=== PATIENT | female | born 1970 | race Caucasian/White ===

== ENCOUNTER → 2016-06-10 | Outpatient (REF) | payer BC ==
[~2016-06-10] MED LIST: AMLO25TA PO; ATEN25TA PO; DELT1TAB PO; ESCI10TA2 PO; HYDR25TAB PO; HYDROXYCHLOROQUINE PO; LEFL1TAB4 PO; LISI10TA4 PO; PRED10TA PO; TRAZ100T4 PO; VICO7.5T11 PO; XANA0.5T PO; ZEST1TAB7 PO; plaquenil PO
[2016-06-10 16:49] LABS: BASO # 0.1 K/mm3 (0.0-0.2); BASO % 0.7 % (0.0-1.0); EOS # 0.3 K/mm3 (0.0-0.50); EOS % 2.8 % (0.0-3.0); LYMPH % 9.3 % (24.0-44.0); MEAN CORPUSCULAR HEMOGLOBIN 31.6 pg (27.0-33.0); MEAN CORPUSCULAR HGB CONC 33.2 g/dl (32.0-36.5); MEAN CORPUSCULAR VOLUME 95.1 fl (80.0-96.0); MONO # 0.5 K/mm3 (0.0-0.8); MONO % 5.2 % (0.0-5.0); NEUTROPHILS # 7.7 K/mm3 (1.8-7.7); NEUTROPHILS % 80.9 % (36.0-66.0); RED CELL DISTRIBUTION WIDTH 12.6 % (11.5-14.5); WHITE BLOOD COUNT 9.6 K/mm3 (4.0-10.0)
[2016-06-10 17:42] LABS: ALBUMIN 3.8 GM/DL (3.2-5.2); ALKALINE PHOSPHATASE 95 U/L (45-117); ALT/SGPT 30 U/L (12-78); AST/SGOT 19 U/L (15-37); BLOOD UREA NITROGEN 19 MG/DL (7-18); COMPLEMENT C3 133 MG/DL (90-180); CREATININE FOR GFR 0.94 MG/DL (0.55-1.02); GLOMERULAR FILTRATION RATE > 60.0 (>58)
== END ==
LOC: M LAB REF 16:26
PROVIDERS: ATTEND Physician Assistant Medical
DX: Z51.81 Encounter for therapeutic drug level monitoring (principal); Z79.899 Other long term (current) drug therapy; M32.19 Other organ or system involvement in systemic lupus erythematosus

== ENCOUNTER → 2016-08-01 | Outpatient (REF) | payer BC | LOC: M LAB REF 13:12 | PROVIDERS: ATTEND Physician Assistant Medical | DX: M32.19 Other organ or system involvement in systemic lupus erythematosus (principal) ==

== ENCOUNTER → 2016-08-13 | Outpatient (REF) | payer BC ==
[2016-08-13 17:39] LABS: MEAN CORPUSCULAR HEMOGLOBIN 32.6 pg (27.0-33.0); MEAN CORPUSCULAR HGB CONC 32.5 g/dl (32.0-36.5); MEAN CORPUSCULAR VOLUME 100.2 fl (80.0-96.0); RED CELL DISTRIBUTION WIDTH 12.6 % (11.5-14.5); WHITE BLOOD COUNT 5.9 K/mm3 (4.0-10.0)
[2016-08-13 18:01] LABS: ALBUMIN 3.8 GM/DL (3.2-5.2); ALBUMIN/GLOBULIN RATIO 1.23 (1.00-1.93); BILIRUBIN,TOTAL 0.2 MG/DL (0.2-1.0); CALCIUM LEVEL 9.2 MG/DL (8.5-10.1); CREATININE FOR GFR 1.08 MG/DL (0.55-1.02); GLOMERULAR FILTRATION RATE 57.9 (>58); POTASSIUM SERUM 4.1 MEQ/L (3.5-5.1); TOTAL PROTEIN 6.9 GM/DL (6.4-8.2)
== END ==
LOC: M SFHCCAPE 10:11 → M LABDRAWC 10:15
PROVIDERS: ATTEND Nurse Practitioner Family
DX: K21.9 Gastro-esophageal reflux disease without esophagitis (principal); I10 Essential (primary) hypertension; E78.4 Other hyperlipidemia; E55.9 Vitamin D deficiency, unspecified

== ENCOUNTER → 2016-12-23 | Outpatient (REF) | payer BC ==
[~2016-12-23] MED LIST changes: +TRAZ-136 PO; -TRAZ100T4 PO
[2016-12-23 12:36] LABS: ALBUMIN 3.8 GM/DL (3.2-5.2); CALCIUM LEVEL 8.8 MG/DL (8.5-10.1); CREATININE FOR GFR 1.06 MG/DL (0.55-1.02); GLOMERULAR FILTRATION RATE 58.9 (>58); PHOSPHORUS LEVEL 3.9 MG/DL (2.5-4.9)
== END ==
LOC: M SFHCCLAY 09:13
PROVIDERS: ATTEND Nurse Practitioner Family
DX: E78.4 Other hyperlipidemia (principal); I10 Essential (primary) hypertension; E55.9 Vitamin D deficiency, unspecified

== ENCOUNTER → 2017-03-24 | Outpatient (REF) | payer BC ==
[2017-03-24 17:44] LABS: CREATININE FOR GFR 1.06 MG/DL (0.55-1.02); GLOMERULAR FILTRATION RATE 58.9 (>58)
== END ==
LOC: M SFHCCLAY 11:18
PROVIDERS: ATTEND Nurse Practitioner Family
DX: I10 Essential (primary) hypertension (principal); E78.4 Other hyperlipidemia; E55.9 Vitamin D deficiency, unspecified

== ENCOUNTER → 2017-03-24 | Outpatient (REF) | payer BC ==
[2017-03-24 18:09] LABS: BASO # 0.1 10^3/uL (0.0-0.2); BASO % 0.7 % (0.0-1.0); EOS # 0.2 10^3/uL (0.0-0.50); EOS % 2.5 % (0.0-3.0); IMMATURE GRANULOCYTE % 0.2 % (0-0); LYMPH % 23.8 % (24.0-44.0); MEAN CORPUSCULAR HEMOGLOBIN 31.4 pg (27.0-33.0); MEAN CORPUSCULAR HGB CONC 32.8 g/dl (32.0-36.5); MEAN CORPUSCULAR VOLUME 95.7 fl (80.0-96.0); MONO # 0.6 10^3/uL (0.0-0.8); MONO % 7.5 % (0.0-5.0); NEUTROPHILS # 5.6 10^3/uL (1.8-7.7); NEUTROPHILS % 65.3 % (36.0-66.0); PLATELET COUNT, AUTOMATED 231 10^3/uL (150-450); RED CELL DISTRIBUTION WIDTH 12.2 % (11.5-14.5); WHITE BLOOD COUNT 8.5 10^3/uL (4.0-10.0)
[2017-03-24 18:36] LABS: ALBUMIN 4.2 GM/DL (3.2-5.2); ALKALINE PHOSPHATASE 78 U/L (45-117); ALT/SGPT 30 U/L (12-78); AST/SGOT 18 U/L (7-37); BLOOD UREA NITROGEN 20 MG/DL (7-18); COMPLEMENT C3 128 MG/DL (90-180); COMPLEMENT C4 20.1 MG/DL (10-40); GLOMERULAR FILTRATION RATE > 60.0 (>58)
[2017-03-24 19:25] LABS: ERYTHROCYTE SEDIMENTATION RATE 9 mm/hr (0-20)
== END ==
LOC: M LABDRAWC 17:05
PROVIDERS: ATTEND Physician Assistant Medical
DX: M32.19 Other organ or system involvement in systemic lupus erythematosus (principal); Z79.52 Long term (current) use of systemic steroids; Z79.899 Other long term (current) drug therapy

== ENCOUNTER → 2017-08-14 | Outpatient (REF) | payer BC ==
[2017-08-14 17:26] LABS: APPEARANCE, URINE CLEAR (CLEAR); BACTERIA, URINE AUTO NEGATIVE (NEGATIVE); BILIRUBIN, URINE AUTO NEGATIVE (NEGATIVE); BLOOD, URINE BLOOD NEGATIVE (NEGATIVE); COLOR, URINE YELLOW (YELLOW); GLUCOSE, URINE (UA) AUTO NEGATIVE (NEGATIVE); KETONE, URINE AUTO NEGATIVE (NEGATIVE); LEUKOCYTE ESTERASE, URINE AUTO NEGATIVE (NEGATIVE); MUCUS, URINE SMALL (NEGATIVE); NITRITE, URINE AUTO NEGATIVE (NEGATIVE); PROTEIN, URINE AUTO NEGATIVE (NEGATIVE); RBC, URINE AUTO 1 /HPF (0-3); SPECIFIC GRAVITY URINE AUTO 1.013 (1.002-1.035); SQUAMOUS EPITHELIAL CELL UR AU 0 /HPF (0-6); UROBILINOGEN, URINE AUTO 0.2 mg/dL (0.0-2.0); WBC, URINE AUTO 0 /HPF (0-3)
[2017-08-14 17:35] LABS: COMPLEMENT C4 18.7 MG/DL (10-40)
[2017-08-14 17:35] LABS: COMPLEMENT C3 112 MG/DL (90-180)
[2017-08-14 17:48] LABS: ERYTHROCYTE SEDIMENTATION RATE 13 mm/hr (0-20)
[2017-08-16 14:11] LABS: ANTI DOUBLE STRAND-DNA AB 4 IU/mL (0-9)
== END ==
LOC: M LAB REF 16:55
DX: M32.19 Other organ or system involvement in systemic lupus erythematosus (principal)
CPT/HCPCS: 86160

== ENCOUNTER → 2017-09-18 | Outpatient (REF) | payer BC ==
[2017-09-18 18:19] LABS: ALBUMIN 4.2 GM/DL (3.2-5.2); ALT/SGPT 24 U/L (12-78); AST/SGOT 14 U/L (7-37); C REACTIVE PROTEIN QUANTITATIV < 0.30 MG/DL (0.00-0.30); COMPLEMENT C3 124 MG/DL (90-180); COMPLEMENT C4 19.7 MG/DL (10-40); GLOMERULAR FILTRATION RATE 56.4 (>58)
[2017-09-18 18:45] LABS: BASO # 0.1 10^3/uL (0.0-0.2); EOS # 0.2 10^3/uL (0.0-0.50); EOS % 2.2 % (0.0-3.0); HEMATOCRIT 41.9 % (36.0-47.0); HEMOGLOBIN 13.8 g/dl (12.0-15.5); IMMATURE GRANULOCYTE % 0.2 % (0-3.0); LYMPH # 1.5 10^3/uL (1.5-4.5); LYMPH % 16.8 % (24.0-44.0); MEAN CORPUSCULAR HEMOGLOBIN 31.7 pg (27.0-33.0); MEAN CORPUSCULAR HGB CONC 32.9 g/dl (32.0-36.5); MEAN CORPUSCULAR VOLUME 96.3 fl (80.0-96.0); MONO # 0.5 10^3/uL (0.0-0.8); MONO % 5.8 % (0.0-5.0); NEUTROPHILS # 6.5 10^3/uL (1.8-7.7); PLATELET COUNT, AUTOMATED 176 10^3/uL (150-450); RED BLOOD COUNT 4.35 10^6/uL (4.00-5.40); RED CELL DISTRIBUTION WIDTH 12.3 % (11.5-14.5); WHITE BLOOD COUNT 8.8 10^3/uL (4.0-10.0)
[2017-09-18 20:36] LABS: AMORPHOUS SEDIMENT LARGE (NEGATIVE); APPEARANCE, URINE CLOUDY (CLEAR); BACTERIA, URINE AUTO 1+ (NEGATIVE); BILIRUBIN, URINE AUTO 1+ (NEGATIVE); BLOOD, URINE BLOOD NEGATIVE (NEGATIVE); COLOR, URINE YELLOW (YELLOW); GLUCOSE, URINE (UA) AUTO NEGATIVE (NEGATIVE); KETONE, URINE AUTO TRACE mg/dL (NEGATIVE); LEUKOCYTE ESTERASE, URINE AUTO TRACE (NEGATIVE); MUCUS, URINE LARGE (NEGATIVE); NITRITE, URINE AUTO NEGATIVE (NEGATIVE); PROTEIN, URINE AUTO 1+ mg/dL (NEGATIVE); RBC, URINE AUTO 5 /HPF (0-3); SPECIFIC GRAVITY URINE AUTO 1.035 (1.002-1.035); SQUAMOUS EPITHELIAL CELL UR AU 1 /HPF (0-6); WBC, URINE AUTO 8 /HPF (0-3)
[2017-09-18 20:46] LABS: ERYTHROCYTE SEDIMENTATION RATE 14 mm/hr (0-20)
[2017-09-20 14:09] LABS: ANTI DOUBLE STRAND-DNA AB 5 IU/mL (0-9)
== END ==
LOC: M LABDRAWC 16:33
DX: M32.19 Other organ or system involvement in systemic lupus erythematosus (principal); Z79.899 Other long term (current) drug therapy; Z79.52 Long term (current) use of systemic steroids
CPT/HCPCS: 84460

== ENCOUNTER → 2018-01-07 | Outpatient (REF) | payer BC ==
[2018-01-07 11:50] LABS: BASO # 0.1 10^3/uL (0.0-0.2); BASO % 0.7 % (0.0-1.0); EOS # 0.4 10^3/uL (0.0-0.50); EOS % 4.7 % (0.0-3.0); HEMATOCRIT 40.1 % (36.0-47.0); HEMOGLOBIN 12.8 g/dl (12.0-15.5); IMMATURE GRANULOCYTE % 0.3 % (0-3.0); LYMPH # 1.5 10^3/uL (1.5-4.5); LYMPH % 16.8 % (24.0-44.0); MEAN CORPUSCULAR HEMOGLOBIN 31.8 pg (27.0-33.0); MEAN CORPUSCULAR HGB CONC 31.9 g/dl (32.0-36.5); MEAN CORPUSCULAR VOLUME 99.8 fl (80.0-96.0); MONO # 0.5 10^3/uL (0.0-0.8); MONO % 5.6 % (0.0-5.0); NEUTROPHILS # 6.4 10^3/uL (1.8-7.7); NEUTROPHILS % 71.9 % (36.0-66.0); PLATELET COUNT, AUTOMATED 218 10^3/uL (150-450); RED BLOOD COUNT 4.02 10^6/uL (4.00-5.40); RED CELL DISTRIBUTION WIDTH 12.7 % (11.5-14.5); WHITE BLOOD COUNT 8.9 10^3/uL (4.0-10.0)
[2018-01-07 12:09] LABS: ERYTHROCYTE SEDIMENTATION RATE 26 mm/hr (0-20)
[2018-01-07 12:14] LABS: ALBUMIN 3.7 GM/DL (3.2-5.2); ALT/SGPT 30 U/L (12-78); AST/SGOT 26 U/L (7-37); C REACTIVE PROTEIN QUANTITATIV 0.43 MG/DL (0.00-0.30); COMPLEMENT C3 117 MG/DL (90-180); CPK CREATINE PHOSPHOKINASE 469 U/L (26-192); CREATININE FOR GFR 0.88 MG/DL (0.55-1.30); GLOMERULAR FILTRATION RATE > 60.0 (>58)
[2018-01-07 18:49] LABS: APPEARANCE, URINE HAZY (CLEAR); BACTERIA, URINE AUTO NEGATIVE (NEGATIVE); BILIRUBIN, URINE AUTO NEGATIVE (NEGATIVE); BLOOD, URINE BLOOD NEGATIVE (NEGATIVE); COLOR, URINE AMBER (YELLOW); GLUCOSE, URINE (UA) AUTO NEGATIVE (NEGATIVE); KETONE, URINE AUTO TRACE mg/dL (NEGATIVE); LEUKOCYTE ESTERASE, URINE AUTO NEGATIVE (NEGATIVE); MUCUS, URINE LARGE (NEGATIVE); NITRITE, URINE AUTO NEGATIVE (NEGATIVE); PROTEIN, URINE AUTO NEGATIVE (NEGATIVE); RBC, URINE AUTO 1 /HPF (0-3); SPECIFIC GRAVITY URINE AUTO 1.028 (1.002-1.035); SQUAMOUS EPITHELIAL CELL UR AU 0 /HPF (0-6); WBC, URINE AUTO 1 /HPF (0-3)
[2018-01-09 00:06] LABS: ALDOLASE 5.3 U/L (3.3-10.3)
[2018-01-09 00:06] LABS: ANTI DOUBLE STRAND-DNA AB 5 IU/mL (0-9)
== END ==
LOC: M LAB REF 11:14
DX: M32.19 Other organ or system involvement in systemic lupus erythematosus (principal)

== ENCOUNTER → 2018-03-23 | Outpatient (REF) | payer BC ==
[2018-03-23 11:52] LABS: HEMOGLOBIN 12.6 g/dl (12.0-15.5); MEAN CORPUSCULAR HEMOGLOBIN 32.1 pg (27.0-33.0); MEAN CORPUSCULAR HGB CONC 32.3 g/dl (32.0-36.5); MEAN CORPUSCULAR VOLUME 99.5 fl (80.0-96.0); PLATELET COUNT, AUTOMATED 204 10^3/uL (150-450); RED BLOOD COUNT 3.92 10^6/uL (4.00-5.40); RED CELL DISTRIBUTION WIDTH 12.4 % (11.5-14.5); WHITE BLOOD COUNT 7.3 10^3/uL (4.0-10.0)
[2018-03-23 12:14] LABS: ALBUMIN/GLOBULIN RATIO 1.43 (1.00-1.93); ALKALINE PHOSPHATASE 79 U/L (45-117); ALT/SGPT 40 U/L (12-78); ANION GAP 7 MEQ/L (8-16); AST/SGOT 23 U/L (7-37); BILIRUBIN,TOTAL 0.2 MG/DL (0.2-1.0); BLOOD UREA NITROGEN 12 MG/DL (7-18); CARBON DIOXIDE LEVEL 27 MEQ/L (21-32); CHLORIDE LEVEL 108 MEQ/L (98-107); CHOLESTEROL LEVEL 200 MG/DL (<200); CHOLESTEROL RISK RATIO 3.921 (<5); CREATININE FOR GFR 0.78 MG/DL (0.55-1.30); GLOMERULAR FILTRATION RATE > 60.0 (>58); GLUCOSE, FASTING 87 MG/DL (70-100); HDL CHOLESTEROL 51 MG/DL (>40); LDL CHOLESTEROL 126 MG/DL (<100); NON-HDL-C 149 MG/DL; POTASSIUM SERUM 4.4 MEQ/L (3.5-5.1); SODIUM LEVEL 142 MEQ/L (136-145); TOTAL PROTEIN 6.8 GM/DL (6.4-8.2); TRIGLYCERIDES LEVEL 114 MG/DL (<150)
[2018-03-23 12:20] LABS: TOTAL 25(OH) VITAMIN D 15.7 NG/ML (30.0-100.0)
== END ==
LOC: M SFHCCLAY 09:25
DX: K21.9 Gastro-esophageal reflux disease without esophagitis (principal); I10 Essential (primary) hypertension; E78.49 Other hyperlipidemia; E55.9 Vitamin D deficiency, unspecified
CPT/HCPCS: 80053

== ENCOUNTER → 2018-07-06 | Outpatient (REF) | payer BC ==
[~2018-07-06] MED LIST changes: -TRAZ-136 PO; +TRAZ-163 PO
[2018-07-06 12:24] LABS: CHOLESTEROL RISK RATIO 3.423 (<5)
[2018-07-06 14:47] LABS: TOTAL 25(OH) VITAMIN D 23.5 NG/ML (30.0-100.0)
== END ==
LOC: M SFHCCLAY 08:59
PROVIDERS: ATTEND Nurse Practitioner Family
DX: E78.49 Other hyperlipidemia (principal); E55.9 Vitamin D deficiency, unspecified

== ENCOUNTER → 2018-10-08 | Outpatient (REF) | payer BC ==
[~2018-10-08] MED LIST changes: +HYDR-2541 PO; +PRED-351 PO; -PRED10TA PO
== END ==
LOC: M SFHCCLAY 12:35
PROVIDERS: ATTEND Nurse Practitioner Family
DX: K13.79 Other lesions of oral mucosa (principal)

== ENCOUNTER → 2019-03-02 | Outpatient (REF) | payer BC ==
[~2019-03-02] MED LIST changes: -VICO7.5T11 PO; +VICO7.5T12 PO
[2019-03-02 18:26] LABS: HEMATOCRIT 39.6 % (36.0-47.0); MEAN CORPUSCULAR HEMOGLOBIN 32.4 pg (27.0-33.0); MEAN CORPUSCULAR HGB CONC 32.8 g/dl (32.0-36.5); MEAN CORPUSCULAR VOLUME 98.8 fl (80.0-96.0); PLATELET COUNT, AUTOMATED 193 10^3/uL (150-450); RED BLOOD COUNT 4.01 10^6/uL (4.00-5.40); WHITE BLOOD COUNT 9.5 10^3/uL (4.0-10.0)
[2019-03-02 19:01] LABS: ALBUMIN 3.9 GM/DL (3.2-5.2); ALT/SGPT 33 U/L (12-78); BILIRUBIN,TOTAL 0.3 MG/DL (0.2-1.0); BLOOD UREA NITROGEN 17 MG/DL (7-18); CALCIUM LEVEL 8.9 MG/DL (8.5-10.1); CARBON DIOXIDE LEVEL 29 MEQ/L (21-32); CHLORIDE LEVEL 108 MEQ/L (98-107); CHOLESTEROL LEVEL 182 MG/DL (<200); CHOLESTEROL RISK RATIO 2.716 (<5); CREATININE FOR GFR 0.93 MG/DL (0.55-1.30); GLOMERULAR FILTRATION RATE > 60.0 (>51); GLUCOSE, FASTING 84 MG/DL (70-100); HDL CHOLESTEROL 67 MG/DL (>40); LDL CHOLESTEROL 99 MG/DL (<100); NON-HDL-C 115 MG/DL; SODIUM LEVEL 143 MEQ/L (136-145); TOTAL PROTEIN 6.8 GM/DL (6.4-8.2); TRIGLYCERIDES LEVEL 80 MG/DL (<150)
== END ==
LOC: M SFHCCLAY 10:08
PROVIDERS: ATTEND Nurse Practitioner Family
DX: I10 Essential (primary) hypertension (principal); E78.2 Mixed hyperlipidemia; F32.9 Major depressive disorder, single episode, unspecified

== ENCOUNTER → 2019-03-23 | Outpatient (REF) | payer BC ==
[2019-03-23 18:49] LABS: BLOOD UREA NITROGEN 20 MG/DL (7-18); COMPLEMENT C3 110 MG/DL (90-180); COMPLEMENT C4 17 MG/DL (10-40); CREATININE FOR GFR 1.02 MG/DL (0.55-1.30); GLOMERULAR FILTRATION RATE > 60.0 (>51)
[2019-03-23 19:34] LABS: BASO # 0.1 10^3/uL (0.0-0.2); BASO % 0.8 % (0.0-1.0); EOS # 0.3 10^3/uL (0.0-0.5); EOS % 2.8 % (0.0-3.0); HEMOGLOBIN 13.1 g/dl (12.0-15.5); LYMPH # 1.9 10^3/uL (1.5-5.0); LYMPH % 19.2 % (24.0-44.0); MEAN CORPUSCULAR VOLUME 100.2 fl (80.0-96.0); MONO # 0.5 10^3/uL (0.0-0.8); MONO % 5.2 % (0.0-5.0); NEUTROPHILS # 7.2 10^3/uL (1.5-8.5); NEUTROPHILS % 71.7 % (36.0-66.0); PLATELET COUNT, AUTOMATED 194 10^3/uL (150-450); RED BLOOD COUNT 4.09 10^6/uL (4.00-5.40); WHITE BLOOD COUNT 10.1 10^3/uL (4.0-10.0)
== END ==
LOC: M LABDRAWC 16:20
PROVIDERS: ATTEND Physician Assistant Medical
DX: M32.19 Other organ or system involvement in systemic lupus erythematosus (principal); Z79.899 Other long term (current) drug therapy

== ENCOUNTER → 2019-05-04 | Outpatient (REF) | payer BC ==
[~2019-05-04] MED LIST changes: -TRAZ-163 PO; +TRAZ-257 PO
[2019-05-05 12:18] LABS: BASO # 0.1 10^3/uL (0.0-0.2); BASO % 1.2 % (0.0-1.0); EOS # 0.2 10^3/uL (0.0-0.5); EOS % 2.1 % (0.0-3.0); HEMATOCRIT 41.5 % (36.0-47.0); HEMOGLOBIN 13.1 g/dl (12.0-15.5); LYMPH # 2.3 10^3/uL (1.5-5.0); LYMPH % 24.1 % (24.0-44.0); MEAN CORPUSCULAR HGB CONC 31.6 g/dl (32.0-36.5); MEAN CORPUSCULAR VOLUME 101.5 fl (80.0-96.0); MONO # 0.5 10^3/uL (0.0-0.8); MONO % 5.2 % (0.0-5.0); NEUTROPHILS # 6.3 10^3/uL (1.5-8.5); NEUTROPHILS % 67.2 % (36.0-66.0); PLATELET COUNT, AUTOMATED 193 10^3/uL (150-450); RED BLOOD COUNT 4.09 10^6/uL (4.00-5.40); WHITE BLOOD COUNT 9.4 10^3/uL (4.0-10.0)
[2019-05-05 12:22] LABS: ALBUMIN 3.9 GM/DL (3.2-5.2); ALT/SGPT 27 U/L (12-78); BILIRUBIN,TOTAL 0.4 MG/DL (0.2-1.0); BLOOD UREA NITROGEN 19 MG/DL (7-18); CALCIUM LEVEL 8.6 MG/DL (8.5-10.1); CARBON DIOXIDE LEVEL 32 MEQ/L (21-32); CHLORIDE LEVEL 107 MEQ/L (98-107); CREATININE FOR GFR 1.03 MG/DL (0.55-1.30); GLOMERULAR FILTRATION RATE > 60.0 (>51); GLUCOSE, FASTING 103 MG/DL (70-100); POTASSIUM SERUM 3.8 MEQ/L (3.5-5.1); SODIUM LEVEL 143 MEQ/L (136-145); TOTAL PROTEIN 6.6 GM/DL (6.4-8.2)
== END ==
LOC: M LABDRAWC 11:29
PROVIDERS: ATTEND Nurse Practitioner
DX: M32.10 Systemic lupus erythematosus, organ or system involvement unspecified (principal)

== ENCOUNTER → 2019-09-15 | Outpatient (REF) | payer BC ==
[2019-09-15 17:05] LABS: BASO # 0.1 10^3/uL (0.0-0.2); EOS # 0.3 10^3/uL (0.0-0.5); EOS % 2.6 % (0.0-3.0); HEMATOCRIT 41.8 % (36.0-47.0); HEMOGLOBIN 13.7 g/dl (12.0-15.5); LYMPH % 18.7 % (24.0-44.0); MEAN CORPUSCULAR HEMOGLOBIN 32.1 pg (27.0-33.0); MEAN CORPUSCULAR HGB CONC 32.8 g/dl (32.0-36.5); MEAN CORPUSCULAR VOLUME 97.9 fl (80.0-96.0); MONO # 0.6 10^3/uL (0.0-0.8); MONO % 5.7 % (0.0-5.0); NEUTROPHILS # 7.6 10^3/uL (1.5-8.5); NEUTROPHILS % 71.7 % (36.0-66.0); PLATELET COUNT, AUTOMATED 206 10^3/uL (150-450); RED BLOOD COUNT 4.27 10^6/uL (4.00-5.40); WHITE BLOOD COUNT 10.6 10^3/uL (4.0-10.0)
[2019-09-15 17:11] LABS: ALBUMIN 3.8 GM/DL (3.2-5.2); ALT/SGPT 36 U/L (12-78); C REACTIVE PROTEIN QUANTITATIV < 0.30 MG/DL (0.00-0.30); COMPLEMENT C3 100 MG/DL (90-180); COMPLEMENT C4 17 MG/DL (10-40); CREATININE FOR GFR 0.94 MG/DL (0.55-1.30); GLOMERULAR FILTRATION RATE > 60.0 (>51)
[2019-09-15 17:39] LABS: ERYTHROCYTE SEDIMENTATION RATE 13 mm/hr (0-30)
[2019-09-20 13:06] LABS: ANTI DS-DNA AB Negative (Negative)
== END ==
LOC: M LABDRAWC 15:59
PROVIDERS: ATTEND Physician Assistant Medical
DX: M32.19 Other organ or system involvement in systemic lupus erythematosus (principal); Z79.52 Long term (current) use of systemic steroids; Z79.899 Other long term (current) drug therapy

== ENCOUNTER → 2019-11-10 | Outpatient (REF) | payer BC ==
[~2019-11-10] MED LIST changes: +AMLO1TAB24 PO; +AMPI500C9 PO; +DOXY-350 PO; +HIBI4LIQ EXT; +HYDR-4431 PO; +HYDR200T3 PO; +KETO10TAB PO; +LAMO25TA4 PO; +LISI40TA PO; +PRED1TABL PO; +PRED5TA PO; +VIIB40TA PO; +VITA50005 PO
[2019-12-09 13:11] LABS: BASO # 0.1 10^3/uL (0.0-0.2); BASO % 1.2 % (0.0-1.0); EOS # 0.3 10^3/uL (0.0-0.5); EOS % 2.9 % (0.0-3.0); HEMOGLOBIN 13.3 g/dl (12.0-15.5); LYMPH # 2.4 10^3/uL (1.5-5.0); LYMPH % 23.2 % (24.0-44.0); MEAN CORPUSCULAR HEMOGLOBIN 31.7 pg (27.0-33.0); MEAN CORPUSCULAR HGB CONC 31.7 g/dl (32.0-36.5); MEAN CORPUSCULAR VOLUME 100.2 fl (80.0-96.0); MONO # 0.6 10^3/uL (0.0-0.8); MONO % 5.9 % (0.0-5.0); NEUTROPHILS # 6.8 10^3/uL (1.5-8.5); NEUTROPHILS % 66.6 % (36.0-66.0); PLATELET COUNT, AUTOMATED 191 10^3/uL (150-450); RED BLOOD COUNT 4.19 10^6/uL (4.00-5.40); WHITE BLOOD COUNT 10.2 10^3/uL (4.0-10.0)
[2019-12-09 13:14] LABS: ERYTHROCYTE SEDIMENTATION RATE 7 mm/hr (0-30)
[2019-12-15 10:54] LABS: ALT/SGPT 31 U/L (12-78); C REACTIVE PROTEIN QUANTITATIV < 0.30 MG/DL (0.00-0.30); COMPLEMENT C3 102 MG/DL (90-180); COMPLEMENT C4 16 MG/DL (10-40); GLOMERULAR FILTRATION RATE > 60.0 (>51)
[2019-12-25 11:00] LABS: ANTI DS-DNA AB SEE SEPARATE REPORT
== END ==
LOC: M LABDRAWC 14:41
PROVIDERS: ATTEND Physician Assistant Medical
DX: M32.19 Other organ or system involvement in systemic lupus erythematosus (principal); Z79.52 Long term (current) use of systemic steroids; Z79.899 Other long term (current) drug therapy

== ENCOUNTER 2019-12-06 20:43 | Inpatient (IN) | payer BC ==
[~2019-12-06] VITALS: Ht 167.6 cm; Wt 70.9 kg
[~2019-12-06 20:43] MED LIST changes: -AMLO1TAB24 PO; -AMPI500C9 PO; -DOXY-350 PO; -HIBI4LIQ EXT; -HYDR-4431 PO; -HYDR200T3 PO; -KETO10TAB PO; -LAMO25TA4 PO; -LISI40TA PO; -PRED1TABL PO; -PRED5TA PO; -VIIB40TA PO; -VITA50005 PO
[2019-12-06 22:16] LABS: BASO # 0.1 10^3/uL (0.0-0.2); BASO % 0.3 % (0.0-1.0); EOS % 0.1 % (0.0-3.0); HEMATOCRIT 40.9 % (36.0-47.0); HEMOGLOBIN 13.7 g/dl (12.0-15.5); LYMPH # 1.3 10^3/uL (1.5-5.0); MEAN CORPUSCULAR HEMOGLOBIN 32.5 pg (27.0-33.0); MEAN CORPUSCULAR HGB CONC 33.5 g/dl (32.0-36.5); MEAN CORPUSCULAR VOLUME 96.9 fl (80.0-96.0); MONO # 1.3 10^3/uL (0.0-0.8); NEUTROPHILS % 88.9 % (36.0-66.0); PLATELET COUNT, AUTOMATED 212 10^3/uL (150-450); RED BLOOD COUNT 4.22 10^6/uL (4.00-5.40); WHITE BLOOD COUNT 25.8 10^3/uL (4.0-10.0)
[2019-12-06 22:27] LABS: ALBUMIN 3.8 GM/DL (3.2-5.2); ALT/SGPT 34 U/L (12-78); BILIRUBIN,DIRECT 0.2 MG/DL (0.0-0.2); BILIRUBIN,TOTAL 0.7 MG/DL (0.2-1.0); BLOOD UREA NITROGEN 16 MG/DL (7-18); CALCIUM LEVEL 8.8 MG/DL (8.5-10.1); CARBON DIOXIDE LEVEL 25 MEQ/L (21-32); CHLORIDE LEVEL 106 MEQ/L (98-107); CREATININE FOR GFR 0.82 MG/DL (0.55-1.30); GLOMERULAR FILTRATION RATE > 60.0 (>51); GLUCOSE, FASTING 103 MG/DL (70-100); POTASSIUM SERUM 3.4 MEQ/L (3.5-5.1); SODIUM LEVEL 138 MEQ/L (136-145); TOTAL PROTEIN 6.9 GM/DL (6.4-8.2)
[2019-12-06] MEDS ORDERED: MORPHINE 2 MG/ML 1ML VIAL (J2270) As Ordered ONE (22:45)
[2019-12-06] MEDS ORDERED: POTASSIUM CHLORIDE 10 MEQ SR TABLET PO ONE (23:00)
[2019-12-06] MEDS ORDERED: ceFAZolin SOD 1 GM in D5W MINI-BAG PLUS 50 ML IV ONE (23:00)
[2019-12-06] MEDS ORDERED: MORPHINE 2 MG/ML 1ML VIAL (J2270) IV ONE ×2 (23:00→23:30)
[2019-12-06 23:07] LABS: ERYTHROCYTE SEDIMENTATION RATE 39 mm/hr (0-30)
[2019-12-06] MEDS ORDERED: PERCOCET 5MG/325MG TAB PO PRN (23:45)
[2019-12-06] MEDS ORDERED: ACETAMINOPHEN TAB 650MG DOSE (2X325MG) PO ONE (23:45)
[2019-12-06] MEDS ORDERED: MORPHINE 4 MG/ML 1ML VIAL/SYRINGE (J2270) IV PRN (23:45)
[2019-12-06] MEDS ORDERED: PRED5TA PO (23:49)
[2019-12-06] MEDS ORDERED: LISI40TA PO (23:49)
[2019-12-06] MEDS ORDERED: VITA50005 PO (23:49)
[2019-12-06] MEDS ORDERED: HYDR-4431 PO (23:49)
[2019-12-06] MEDS ORDERED: LAMO25TA4 PO (23:49)
[2019-12-06] MEDS ORDERED: HIBI4LIQ EXT (23:49)
[2019-12-06] MEDS ORDERED: HYDR25TAB PO (23:49)
[2019-12-06] MEDS ORDERED: VIIB40TA PO (23:49)
[2019-12-06] MEDS ORDERED: HYDR200T3 PO (23:49)
[2019-12-06] MEDS ORDERED: AMLO1TAB24 PO (23:49)
[2019-12-07] MEDS ORDERED: KETOROLAC 30 MG/ML 1ML VIAL As Ordered ONE (00:21)
[2019-12-07] MEDS: KETOROLAC 30 MG/ML 1ML VIAL IV SCH ×5 (00:25→23:45)
[2019-12-07] MEDS ORDERED: NS 2,000 ML IV ONE (00:30)
[2019-12-07] MEDS ORDERED: VANCOMYCIN HCL 1,000 MG, VIAL MATE ADAPTER 1 EACH in D5W 250 ML IV ONE (01:15)
[2019-12-07 05:48] VITALS: BP 143/79
[2019-12-07] MEDS: ceFAZolin SOD 1 GM in D5W MINI-BAG PLUS 50 ML IV SCH ×2 (05:56→13:48)
[2019-12-07 07:46] LABS: HEMATOCRIT 38.3 % (36.0-47.0); HEMOGLOBIN 12.2 g/dl (12.0-15.5); MEAN CORPUSCULAR HEMOGLOBIN 31.6 pg (27.0-33.0); MEAN CORPUSCULAR HGB CONC 31.9 g/dl (32.0-36.5); MEAN CORPUSCULAR VOLUME 99.2 fl (80.0-96.0); PLATELET COUNT, AUTOMATED 156 10^3/uL (150-450); RED BLOOD COUNT 3.86 10^6/uL (4.00-5.40); WHITE BLOOD COUNT 24.1 10^3/uL (4.0-10.0)
[2019-12-07] MEDS ORDERED: VANCOMYCIN HCL 1,000 MG, VIAL MATE ADAPTER 1 EACH in D5W 250 ML IV SCH (08:00)
[2019-12-07] MEDS: LACTOBACILLUS ACIDOPHILUS CAP (BACID) PO SCH ×2 (08:25→18:15)
[2019-12-07] MEDS: lamoTRIgine 25 MG TAB PO SCH ×2 (08:26→22:12)
[2019-12-07] MEDS: lisinopriL 40 MG TAB PO SCH (08:26)
[2019-12-07] MEDS: amLODIPine 5 MG TAB PO SCH (08:26)
[2019-12-07 08:50] LABS: BLOOD UREA NITROGEN 14 MG/DL (7-18); CALCIUM LEVEL 8.2 MG/DL (8.5-10.1); CARBON DIOXIDE LEVEL 26 MEQ/L (21-32); CHLORIDE LEVEL 111 MEQ/L (98-107); CREATININE FOR GFR 0.76 MG/DL (0.55-1.30); GLOMERULAR FILTRATION RATE > 60.0 (>51); GLUCOSE, FASTING 92 MG/DL (70-100); POTASSIUM SERUM 3.9 MEQ/L (3.5-5.1); SODIUM LEVEL 143 MEQ/L (136-145)
--- NOTE | 2019-12-07 13:55 | IPNPDOC ---
Subjective Date Seen The patient was seen on 12/07/19. Subjective Chief Complaint/HPI redness and pain rt UE . redness improving proximally General: Denies: ROS Unobtainable, Chills, Night Sweats, Fatigue, Malaise, Normal Appetite, Other Symptoms Constitutional: Denies: Chills, Fever, Malaise, Night Sweats, Weakness, Fatigue, Weight Loss, Lethargy, Other Skin: Reports: Other (redness from Rt UE) Pulmonary: Denies: Dyspnea, Cough, Pleuritic Chest Pain, Other Symptoms Cardiovascular: Denies: Chest Pain, Palpitations, Orthopnea, Paroxysmal Noc. Dyspnea, Edema, Lt Headedness, Other Symptoms Gastrointestinal: Denies: Nausea, Vomiting, Abdominal Pain, Diarrhea, Constipation, Melena, Hematochezia, Other Symptoms Musculoskeletal: Reports: Other Symptoms (redness rt UE) Objective Physical Examination General Exam: Positive: Alert, Cooperative Eye Exam: Positive: PERRLA, Conjunctiva & lids normal ENT Exam: Positive: Atraumatic Neck Exam: Positive: Supple Heart Exam: Positive: Rate Normal, Normal S1 Abdomen Exam: Positive: Normal bowel sounds, Soft Extremity Exam: Positive: Other (redness ansd swelling of rt index finger with blister formation and redness ascending on venous pathway to UE) Skin Exam: Positive: Other skin issue (as above) Neuro Exam: Positive: Normal Gait, Strength at 5/5 X4 ext, Sensation Intact, Cranial Nerves 3-12 NL Psych Exam: Positive: Mood NL, Oriented x 3 Assessment /Plan Assessment cellulitis Rt UE Problems (1) Cellulitis of right upper extremity Status: Acute Problem Text: cellulitis starting from the tip of rt index finger with bister formation at the finger then ascending in the venous formation to UE. Pt was started on Ancef and Vanco, will Dc both and start pt on Cefatroline for broad spectrum coverage. Finger Blister was incised and drained and sent for wound C&S Elevation of RT UE awaiting wound cultures tylenol PRN Plan/VTE VTE Prophylaxis Ordered?: Yes VS, I&O, 24H, Fishbone Vital Signs/I&O Vital Signs Date Time Temp Pulse Resp B/P (MAP) Pulse Ox O2 Delivery O2 Flow Rate FiO2 12/07/19 08:26 74 143/79 12/07/19 07:35 99.2 12/07/19 05:48 18 99 Room Air I&O- Last 24 Hours up to 6 AM 12/07/19 06:00 Intake Total 0 ml Balance 0 ml Laboratory Data 24H LABS Laboratory Tests 2 12/06/19 21:30: Immature Granulocyte % (Auto) 0.7, Neutrophils (%) (Auto) 88.9H, Lymphocytes (%) (Auto) 5.0L, Monocytes (%) (Auto) 5.0, Eosinophils (%) (Auto) 0.1, Basophils (%) (Auto) 0.3, Neutrophils # (Auto) 23.0H, Lymphocytes # (Auto) 1.3L, Monocytes # (Auto) 1.3H, Eosinophils # (Auto) 0.0, Basophils # (Auto) 0.1, Nucleated Red Blood Cells % (auto) 0.0, Erythrocyte Sedimentation Rate 39H, Anion Gap 7L, Glomerular Filtration Rate > 60.0, Calcium Level 8.8, Total Bilirubin 0.7, Direct Bilirubin 0.2, Aspartate Amino Transf (AST/SGOT) 16, Alanine Aminotransferase (ALT/SGPT) 34, Alkaline Phosphatase 71, C-Reactive Protein, Quantitative 14.20H, Total Protein 6.9, Albumin 3.8, Albumin/Globulin Ratio 1.2 12/06/19 23:59: Lactic Acid Level 1.1, Methicillin-Resist S.aureus DNA PCR NOT DETECTED 12/07/19 07:20: Nucleated Red Blood Cells % (auto) 0.0, Anion Gap 6L, Glomerular Filtration Rate > 60.0, Calcium Level 8.2L CBC/BMP Laboratory Tests 12/06/19 21:30 12/07/19 07:20 Microbiology Microbiology 12/07/19 Gram Stain - Final, Resulted 12/07/19 Wound Culture, Resulted Pending 12/06/19 Blood Culture, Received Pending 12/06/19 Blood Culture, Received Pending OMID PEREZ MD Dec 07, 2019 13:55
[2019-12-07 14:00] VITALS: BP 101/55
[2019-12-07] MEDS: ACETAMINOPHEN TAB 650MG DOSE (2X325MG) PO PRN ×2 (14:35→22:12)
[2019-12-07] MEDS: CEFTAROLINE FOSAMIL 600 MG in D5W MINI-BAG PLUS 50 ML IV SCH (16:56)
[2019-12-07] MEDS: predniSONE 5 MG TAB PO SCH (18:15)
[2019-12-07] MEDS: HYDROXYCHLOROQUINE 200 MG TAB PO SCH (18:15)
[2019-12-07 22:00] VITALS: BP 116/71
[2019-12-08] MEDS: CEFTAROLINE FOSAMIL 600 MG in D5W MINI-BAG PLUS 50 ML IV SCH (04:11)
[2019-12-08 06:00] VITALS: BP 133/80
[2019-12-08 06:27] LABS: BASO # 0.1 10^3/uL (0.0-0.2); BASO % 0.4 % (0.0-1.0); EOS # 0.2 10^3/uL (0.0-0.5); EOS % 1.1 % (0.0-3.0); HEMATOCRIT 33.6 % (36.0-47.0); HEMOGLOBIN 11.2 g/dl (12.0-15.5); LYMPH # 1.2 10^3/uL (1.5-5.0); LYMPH % 8.6 % (24.0-44.0); MEAN CORPUSCULAR HEMOGLOBIN 32.7 pg (27.0-33.0); MEAN CORPUSCULAR HGB CONC 33.3 g/dl (32.0-36.5); NEUTROPHILS # 11.8 10^3/uL (1.5-8.5); NEUTROPHILS % 82.5 % (36.0-66.0); PLATELET COUNT, AUTOMATED 135 10^3/uL (150-450); RED BLOOD COUNT 3.43 10^6/uL (4.00-5.40); WHITE BLOOD COUNT 14.3 10^3/uL (4.0-10.0)
[2019-12-08 06:46] LABS: ALBUMIN 2.8 GM/DL (3.2-5.2); ALT/SGPT 32 U/L (12-78); BILIRUBIN,TOTAL 0.4 MG/DL (0.2-1.0); BLOOD UREA NITROGEN 13 MG/DL (7-18); CALCIUM LEVEL 8.6 MG/DL (8.5-10.1); CARBON DIOXIDE LEVEL 25 MEQ/L (21-32); CHLORIDE LEVEL 114 MEQ/L (98-107); CREATININE FOR GFR 0.62 MG/DL (0.55-1.30); GLOMERULAR FILTRATION RATE > 60.0 (>51); GLUCOSE, FASTING 106 MG/DL (70-100); POTASSIUM SERUM 3.6 MEQ/L (3.5-5.1); SODIUM LEVEL 142 MEQ/L (136-145); TOTAL PROTEIN 6.5 GM/DL (6.4-8.2)
[2019-12-08] MEDS: KETOROLAC 30 MG/ML 1ML VIAL IV SCH ×3 (06:52→17:53)
[2019-12-08] MEDS: lisinopriL 40 MG TAB PO SCH (08:34)
[2019-12-08] MEDS: LACTOBACILLUS ACIDOPHILUS CAP (BACID) PO SCH ×2 (08:34→17:52)
[2019-12-08] MEDS: lamoTRIgine 25 MG TAB PO SCH ×2 (08:34→21:02)
[2019-12-08] MEDS: amLODIPine 5 MG TAB PO SCH (08:34)
--- NOTE | 2019-12-08 11:29 | IPNPDOC ---
Subjective Date Seen The patient was seen on 12/08/19. Subjective Chief Complaint/HPI cellulitis is improving slowly Skin: Reports: Other (redness RT UE) Pulmonary: Denies: Dyspnea, Cough, Pleuritic Chest Pain, Other Symptoms Cardiovascular: Denies: Chest Pain, Palpitations, Orthopnea, Paroxysmal Noc. Dyspnea, Edema, Lt Headedness, Other Symptoms Gastrointestinal: Denies: Nausea, Vomiting, Abdominal Pain, Diarrhea, Constipation, Melena, Hematochezia, Other Symptoms Genitourinary: Denies: Dysuria, Frequency, Incontinence, Hematuria, Retention, Other Symptoms Musculoskeletal: Denies: Neck Pain, Back Pain, Shoulder Pain, Arm Pain, Hand Pain, Leg Pain, Foot Pain, Joint Pain, Muscle Pain, Spasms, Other Symptoms Neurological: Denies: Weakness, Numbness, Incoordination, Change in speech, Confusion, Seizures, Other Symptoms Objective Physical Examination Neck Exam: Positive: Supple Heart Exam: Positive: Rate Normal, Normal S1 Abdomen Exam: Positive: Normal bowel sounds, Soft Extremity Exam: Positive: Other (redness ansd swelling of rt index finger with blister formation and redness ascending on venous pathway to UE) Skin Exam: Positive: Other skin issue (as above) Assessment /Plan Problems (1) Cellulitis of right upper extremity Status: Acute Problem Text: cellulitis starting from the tip of rt index finger with bister formation at the finger then ascending in the venous formation to UE. Pt was started on Ancef and Vanco, will Dc both and start pt on Cefatroline for broad spectrum coverage. WBC count is 14.3 today Wound culture positive for Strep Pyogens Elevation of RT UE DC cefatroline, start Unasyn for strep coverage tylenol PRN Plan/VTE VTE Prophylaxis Ordered?: Yes VS, I&O, 24H, Fishbone Vital Signs/I&O Vital Signs Date Time Temp Pulse Resp B/P (MAP) Pulse Ox O2 Delivery O2 Flow Rate FiO2 12/08/19 08:34 60 133/80 12/08/19 06:00 98.5 18 98 Room Air I&O- Last 24 Hours up to 6 AM 12/08/19 06:00 Intake Total 1175 ml Output Total 0 ml Balance 1175 ml Laboratory Data 24H LABS Laboratory Tests 2 12/08/19 06:10: Immature Granulocyte % (Auto) 0.4, Neutrophils (%) (Auto) 82.5H, Lymphocytes (%) (Auto) 8.6L, Monocytes (%) (Auto) 7.0H, Eosinophils (%) (Auto) 1.1, Basophils (%) (Auto) 0.4, Neutrophils # (Auto) 11.8H, Lymphocytes # (Auto) 1.2L, Monocytes # (Auto) 1.0H, Eosinophils # (Auto) 0.2, Basophils # (Auto) 0.1, Nucleated Red Blood Cells % (auto) 0.0, Anion Gap 3L, Glomerular Filtration Rate > 60.0, Calcium Level 8.6, Total Bilirubin 0.4, Aspartate Amino Transf (AST/SGOT) 18, Alanine Aminotransferase (ALT/SGPT) 32, Alkaline Phosphatase 66, Total Protein 6.5, Albumin 2.8#L, Albumin/Globulin Ratio 0.8L CBC/BMP Laboratory Tests 12/08/19 06:10 Microbiology Microbiology 12/07/19 Gram Stain - Final, Resulted 12/07/19 Wound Culture - Preliminary, Resulted Streptococcus Pyogenes Grp A 12/06/19 Blood Culture - Preliminary, Resulted No growth after 24 hours . All specim... 12/06/19 Blood Culture - Preliminary, Resulted No growth after 24 hours . All specim... OMID PEREZ MD Dec 08, 2019 11:29
[2019-12-08] MEDS: AMPICILLIN SOD/SULBACTAM SOD 1.5 GM in D5W MINI-BAG PLUS 50 ML IV SCH ×2 (13:17→18:32)
[2019-12-08 14:00] VITALS: BP 145/87
[2019-12-08] MEDS: HYDROXYCHLOROQUINE 200 MG TAB PO SCH (17:52)
[2019-12-08] MEDS: predniSONE 5 MG TAB PO SCH (17:52)
[2019-12-08 22:00] VITALS: BP 126/75
[2019-12-09] MEDS: KETOROLAC 30 MG/ML 1ML VIAL IV SCH ×2 (00:40→06:05)
[2019-12-09] MEDS: AMPICILLIN SOD/SULBACTAM SOD 1.5 GM in D5W MINI-BAG PLUS 50 ML IV SCH ×2 (00:41→06:06)
[2019-12-09 06:00] VITALS: BP 132/80
[2019-12-09 06:46] LABS: BASO % 0.2 % (0.0-1.0); EOS # 0.2 10^3/uL (0.0-0.5); EOS % 1.9 % (0.0-3.0); HEMATOCRIT 34.8 % (36.0-47.0); HEMOGLOBIN 11.4 g/dl (12.0-15.5); LYMPH # 1.5 10^3/uL (1.5-5.0); LYMPH % 15.3 % (24.0-44.0); MEAN CORPUSCULAR HEMOGLOBIN 32.5 pg (27.0-33.0); MEAN CORPUSCULAR HGB CONC 32.8 g/dl (32.0-36.5); MEAN CORPUSCULAR VOLUME 99.1 fl (80.0-96.0); MONO # 0.8 10^3/uL (0.0-0.8); MONO % 8.1 % (0.0-5.0); NEUTROPHILS # 7.2 10^3/uL (1.5-8.5); NEUTROPHILS % 74.2 % (36.0-66.0); PLATELET COUNT, AUTOMATED 142 10^3/uL (150-450); RED BLOOD COUNT 3.51 10^6/uL (4.00-5.40); WHITE BLOOD COUNT 9.7 10^3/uL (4.0-10.0)
[2019-12-09 07:06] LABS: ALBUMIN 2.9 GM/DL (3.2-5.2); ALT/SGPT 45 U/L (12-78); BILIRUBIN,TOTAL 0.5 MG/DL (0.2-1.0); BLOOD UREA NITROGEN 13 MG/DL (7-18); CALCIUM LEVEL 8.3 MG/DL (8.5-10.1); CARBON DIOXIDE LEVEL 26 MEQ/L (21-32); CHLORIDE LEVEL 116 MEQ/L (98-107); CREATININE FOR GFR 0.78 MG/DL (0.55-1.30); GLOMERULAR FILTRATION RATE > 60.0 (>51); GLUCOSE, FASTING 81 MG/DL (70-100); POTASSIUM SERUM 4.1 MEQ/L (3.5-5.1); SODIUM LEVEL 149 MEQ/L (136-145); TOTAL PROTEIN 5.7 GM/DL (6.4-8.2)
[2019-12-09] MEDS ORDERED: LACTOBACILLUS ACIDOPHILUS CAP (BACID) PO SCH (09:00)
[2019-12-09 09:08] VITALS: BP 150/96
[2019-12-09] MEDS: amLODIPine 5 MG TAB PO SCH (09:08)
[2019-12-09] MEDS: lamoTRIgine 25 MG TAB PO SCH (09:08)
[2019-12-09] MEDS: lisinopriL 40 MG TAB PO SCH (09:08)
[2019-12-09] MEDS ORDERED: AMPI500C9 PO (09:52)
--- NOTE | 2019-12-09 13:40 | DS.PDOC ---
Discharge Summary General Date of Admission Dec 06, 2019 at 23:00 Date of Discharge 12/09/19 Discharge Summary PROCEDURES PERFORMED DURING STAY: [None]. ADMITTING DIAGNOSES: 1. [cellulitis RUE]. DISCHARGE DIAGNOSES: 1. [Cellulitis RUE]. COMPLICATIONS/CHIEF COMPLAINT: Cellulitis Of R Upper Extremity. HISTORY OF PRESENT ILLNESS: [49 yo female was admitted when she developed redness of RUE after removing an splinter about two weeks ago.]. HOSPITAL COURSE: [ Pt had developed cellulitis starting from the tip of rt index finger with bister formation at the finger then ascending in the venous formation to UE. Pt was started on Ancef and Vanco, will Dc both and start pt on Cefatroline for broad spectrum coverage. Later pts wound Wound culture came positive for Strep Pyogens and pt was switched to Unasyn 1.5 gm IV q 6 he Pt responded very well to current antibx and cellulitis has clinically improved. She will be Dc home PO Ampicillin 500mg q 8 Hr X10 days F/U with PCP Dr Lemus in one week]. DISCHARGE MEDICATIONS: Please see below. ALLERGIES: Please see below. PHYSICAL EXAMINATION ON DISCHARGE: VITAL SIGNS: Please see below. GENERAL: [WNL] HEENT: [IDALIA/EOMI] NECK: [Supple] CARDIOVASCULAR EXAMINATION: [Si S2 regular] RESPIRATORY EXAMINATION: [Clear to A&P] ABDOMINAL EXAMINATION: [Benign] EXTREMITIES: [decreased redness ans swelling RUE] SKIN: [as above] NEUROLOGICAL EXAMINATION: [no focal motor sensory deficit] PSYCHIATRIC EXAMINATION: [NL] LABORATORY DATA: Please see below. IMAGING: [NONE] PROGNOSIS: [good] ACTIVITY: [As tolerated]. DIET: [as tolerated] DISCHARGE PLAN: [aS ABOVE] DISPOSITION: 01 Home, Self-Care. DISCHARGE INSTRUCTIONS: 1. [ PER dc INSTRUCTIONS]. ITEMS TO FOLLOWUP ON ON OUTPATIENT: 1. [As above]. DISCHARGE CONDITION: [Stable]. TIME SPENT ON DISCHARGE: 38 minutes. Vital Signs/I&Os Vital Signs Date Time Temp Pulse Resp B/P (MAP) Pulse Ox O2 Delivery O2 Flow Rate FiO2 12/09/19 09:08 150/96 12/09/19 06:00 98.5 64 18 99 Room Air I&O- Last 24 Hours up to 6 AM 12/09/19 06:00 Intake Total 500 ml Output Total 0 ml Balance 500 ml Laboratory Data Labs 24H Laboratory Tests 2 12/09/19 05:50: Immature Granulocyte % (Auto) 0.3, Neutrophils (%) (Auto) 74.2H, Lymphocytes (%) (Auto) 15.3L, Monocytes (%) (Auto) 8.1H, Eosinophils (%) (Auto) 1.9, Basophils (%) (Auto) 0.2, Neutrophils # (Auto) 7.2, Lymphocytes # (Auto) 1.5, Monocytes # (Auto) 0.8, Eosinophils # (Auto) 0.2, Basophils # (Auto) 0.0, Nucleated Red Blood Cells % (auto) 0.0, Anion Gap 7L, Glomerular Filtration Rate > 60.0, Calcium Level 8.3L, Total Bilirubin 0.5, Aspartate Amino Transf (AST/SGOT) 23, Alanine Aminotransferase (ALT/SGPT) 45, Alkaline Phosphatase 75, Total Protein 5.7L, Albumin 2.9L, Albumin/Globulin Ratio 1.0L CBC/BMP Laboratory Tests 12/09/19 05:50 Microbiology Microbiology 12/07/19 Gram Stain - Final, Complete 12/07/19 Wound Culture - Final, Complete Streptococcus Pyogenes Grp A 12/06/19 Blood Culture - Preliminary, Resulted No Growth after 48 hours. All Specime... 12/06/19 Blood Culture - Preliminary, Resulted No Growth after 48 hours. All Specime... Discharge Medications Scheduled Amlodipine Besylate (Amlodipine Besylate) 5 Mg Tablet, 5 MG PO DAILY, (Reported) Ampicillin Trihydrate (Ampicillin Trihydrate) 500 Mg Capsule, 500 MG PO TID Chlorhexidine Gluconate (Hibiclens) 118 Ml Liquid, 1 DOSE EXT DAILY, (Reported) Ergocalciferol (Vitamin D2) (Vitamin D2) 50,000 Units Cap, 50,000 UNITS PO 1XWK, (Reported) FRIDAY Hydrochlorothiazide (Hydrochlorothiazide) 25 Mg Tablet, 25 MG PO DAILY, (Reported) Hydroxychloroquine Sulfate (Hydroxychloroquine Sulfate) 200 Mg Tablet, 400 MG PO QPM, (Reported) TAKES AT 1800 Lamotrigine (Lamotrigine) 25 Mg Tablet, 50 MG PO BID, (Reported) Lisinopril (Lisinopril) 40 Mg Tablet, 40 MG PO DAILY, (Reported) Prednisone (Prednisone) 5 Mg Tablet, 5 MG PO QPM, (Reported) TAKES AT 1800 Vilazodone HCl (Viibryd) 40 Mg Tablet, 40 MG PO DAILY, (Reported) Scheduled PRN Hydrocodone/Acetaminophen (Hydrocodone-Acetamin 7.5-300) 1 Each Tablet, 1 TAB PO QID PRN for PAIN, (Reported) Allergies Coded Allergies: mycophenolate mofetil (Unverified Adverse Reaction, Unknown, 07/14/18) OMID PEREZ MD Dec 09, 2019 13:40
--- NOTE | 2019-12-13 09:27 | HPE ---
DATE OF ADMISSION: 12/06/2019 CHIEF COMPLAINT: Right index finger swelling, redness and pain. HISTORY OF PRESENT ILLNESS: This is a 49-year-old female with history of lupus, recently given chemotherapy, on chronic prednisone 5 mg daily, was on tapering dose of 40 mg every 5 days, tapered down to 5 mg daily, was in her usual state of health until two days ago when she was picking up rocks in her yard with her son. The rocks are usually taken to be painted. Yesterday, she noted that there was a sliver. She scrubbed the area under the index finger, put Neosporin on it and a Band-Aid. Into the night, there was increased swelling. No fever or chills, but increasing pain, redness streaking up the dorsal aspect of her right forearm and into the arm, prompting her to come to the emergency room today. The patient had a hard time sleeping last night and had taken hydrocodone 7.5 mg times one without any relief. Into the afternoon today, she has had worsening pain prompting her to come to the emergency room. In the emergency room, she was found to have increasing cellulitic menard from the finger to the right arm, fever 100.8 and white count of 25,000. Hospitalist was called to admit for cellulitis. X-ray had no foreign body. PAST MEDICAL HISTORY: 1. Lupus 2. Depression 3. Anxiety 4. Fibromyalgia 5. Hypertension. 6. Vitamin D deficiency. ALLERGIES: CELLCEPT SURGICAL HISTORY: Biopsy bilaterally shoulder rash April 2015. HOME MEDICATIONS: - lisinopril 40 mg daily - prednisone 5 mg daily - lamotrigine 25 mg daily - hydrocodone/acetaminophen 7.5/300 mg one tablet daily every 4 hours - Cytoxan two weeks ago. - vitamin D 41664 units weekly - Hibiclens liquid externally - hydrochlorothiazide 25 mg daily - vilazodone 40 mg daily - Norvasc 5 mg daily - hydroxychloroquine 200 mg tablets, 400 mg q p.m. FAMILY HISTORY: Father with heart disease. Mother , diabetes, hypertension, heart disease, malignant neoplasm. Five brothers, five sisters, one son. Mother with leukemia. Sister with lung cancer, another sister with lupus. SOCIAL HISTORY: Retired speech therapist early intervention. No alcohol or tobacco use. REVIEW OF SYSTEMS: Per history of present illness. 12-point system otherwise negative. PHYSICAL EXAMINATION: T-max 100.8, pulse 78, respiratory rate 18, blood pressure 148/82, 99% on room air. General: Awake, alert, oriented to person, place and time, answers questions appropriately. No jugular venous distention (JVD), no thyromegaly. Anicteric. Extraocular muscles are intact. Pupils equally round and reactive. Moist mucous membranes. No jugular venous distention (JVD), thyromegaly or cervical lymphadenopathy. Lungs are clear to auscultation. No wheezes, rhonchi or rales. Heart: S1, S2. Sinus tachycardiac. Abdomen: Soft, nontender, nontender. Positive bowel sounds. Extremities: Right finger has a 1 cm raised area and red streaking along the dorsal aspect of the forearm, all the way up the arm and swelling and tenderness. MCP, PIP and DIP joints are swollen. Limited range of motion due to pain. LABORATORY DATA: White count 25.8, hemoglobin 13, hematocrit 40, platelet count 212, neutrophils 80.9. Sodium 138, potassium 3.4, chloride 106, bicarbonate 25, BUN 16, creatinine 0.8, glucose of 103, lactic acid 1.1, calcium 8.8, total bilirubin 0.7, direct bilirubin 0.2, AST 16, ALT 34, alkaline phosphatase 71, CRP of 14, total protein 6.9. Blood cultures two sets are pending. MRSA screen is pending and x-ray pending official report. ASSESSMENT AND PLAN: This is a 49-year-old female with history of lupus, status post Cytoxan two weeks ago on steroid taper, presented to the emergency room with two day history of finger cellulitis, now tracking up the forearm. Admitted for right upper extremity cellulitis with white count of 25,000. IMPRESSION: 1. Sepsis secondary to right finger and right arm cellulitis, currently given IV fluids, IV cephazolin. MRSA screen is pending. IV vancomycin can be discontinued once methicillin-resistant Staphylococcus aureus (MRSA) screen is negative. Blood cultures have taken. 2. Right upper extremity cellulitis, which initially started in the right index finger, currently on IV fluids, IV antibiotics with vancomycin and cephazolin. If MRSA screen is negative, may discontinue IV vancomycin. The patient is currently on IV Toradol. IV fluids given to prevent nephrotoxicity. Pharmacy consulted to dose the vancomycin. 3. Lupus. Status post Cytoxan two weeks ago, monitor the patient's renal function. May continue on lisinopril. If repeat creatinine has worsened, may hold lisinopril. 4. Hypertension. Resumed on lisinopril. 5. Depression/anxiety 6. Fibromyalgia, chronic 7. Vitamin D deficiency. Resume outpatient vitamin D supplement. 8. Deep venous thrombosis (DVT) prophylaxis with compression stockings. MTDD
--- NOTE | 2020-02-08 09:37 | REP ---
RIGHT HAND CLINICAL: Swelling and erythema. Rule out osteomyelitis. TECHNIQUE: AP, lateral, bilateral oblique views of the right hand. FINDINGS: Osseous structures, joint spaces, and surrounding soft tissues appear relatively normal and without acute fracture or dislocation. No periosteal reaction is appreciated to suggest osteomyelitis. The surrounding soft tissues demonstrate mild swelling primarily overlying the second digits without subcutaneous emphysema or foreign body. IMPRESSION: Soft tissue swelling involving the second digit. No acute fracture or dislocation. No obvious radiographic evidence for osteomyelitis MTDD
== END 2019-12-09 11:57 | disposition home or self-care (01) | DRG 383 ==
LOC: M ED 20:43 → M ED INP 23:00 → ENRESERVTM 12-07 02:55 → ENRESERVDT 12-07 02:55 → ENRESERVTM 12-07 02:59 → ENRESERVDT 12-07 02:59 → M MS5PR 12-07 05:16
PROVIDERS: ADMIT General Practice; ATTEND Internal Medicine
DX: L03.011 Cellulitis of right finger (principal); I10 Essential (primary) hypertension; F32.9 Major depressive disorder, single episode, unspecified; L03.113 Cellulitis of right upper limb; F41.9 Anxiety disorder, unspecified; M79.7 Fibromyalgia; E55.9 Vitamin D deficiency, unspecified; B95.5 Unspecified streptococcus as the cause of diseases classified elsewhere; L93.0 Discoid lupus erythematosus; Z88.8 Allergy status to other drugs, medicaments and biological substances; Z79.52 Long term (current) use of systemic steroids; Z79.891 Long term (current) use of opiate analgesic; Z79.899 Other long term (current) drug therapy

== ENCOUNTER 2019-12-13 16:24 | Inpatient (IN) | payer BC ==
[~2019-12-13] VITALS: Ht 167.6 cm; Wt 67.9 kg
[~2019-12-13 16:24] MED LIST changes: +AMLO1TAB24 PO; +AMPI500C9 PO; +HIBI4LIQ EXT; +HYDR-4431 PO; +HYDR200T3 PO; +LAMO25TA4 PO; +LISI40TA PO; +PRED5TA PO; +VIIB40TA PO; +VITA50005 PO
[2019-12-13] MEDS ORDERED: KETO10TAB PO ×2 (16:39→23:38)
[2019-12-13] MEDS ORDERED: NS 1,000 ML IV ONE (19:30)
[2019-12-13] MEDS ORDERED: AMPICILLIN SOD/SULBACTAM SOD 1.5 GM in D5W MINI-BAG PLUS 50 ML IV ONE (19:30)
[2019-12-13 21:08] LABS: HEMATOCRIT 38.9 % (36.0-47.0); HEMOGLOBIN 12.5 g/dl (12.0-15.5); MEAN CORPUSCULAR HEMOGLOBIN 31.9 pg (27.0-33.0); MEAN CORPUSCULAR HGB CONC 32.1 g/dl (32.0-36.5); MEAN CORPUSCULAR VOLUME 99.2 fl (80.0-96.0); PLATELET COUNT, AUTOMATED 305 10^3/uL (150-450); RED BLOOD COUNT 3.92 10^6/uL (4.00-5.40); WHITE BLOOD COUNT 11.3 10^3/uL (4.0-10.0)
[2019-12-13 21:20] LABS: BLOOD UREA NITROGEN 19 MG/DL (7-18); C REACTIVE PROTEIN QUANTITATIV 1.26 MG/DL (0.00-0.30); CALCIUM LEVEL 8.8 MG/DL (8.5-10.1); CARBON DIOXIDE LEVEL 30 MEQ/L (21-32); CHLORIDE LEVEL 107 MEQ/L (98-107); CREATININE FOR GFR 0.87 MG/DL (0.55-1.30); GLOMERULAR FILTRATION RATE > 60.0 (>51); GLUCOSE, FASTING 71 MG/DL (70-100); SODIUM LEVEL 140 MEQ/L (136-145)
[2019-12-13 21:25] LABS: ANISOCYTOSIS 1+; BASOPHILS 1 % (0-1); EOSINOPHILS 3 % (0-3); LYMPHOCYTES 16 % (16-44); MONOCYTES 7 % (0-5); NEUTROPHILS 73 % (28-66); PLATELET ESTIMATE NORMAL (NORMAL)
[2019-12-13 21:51] LABS: ERYTHROCYTE SEDIMENTATION RATE 42 mm/hr (0-30)
[2019-12-13] MEDS ORDERED: PRED1TABL PO (23:38)
[2019-12-13] MEDS ORDERED: AMPI500C9 PO (23:38)
--- NOTE | 2019-12-13 23:42 | HPEPDOC ---
[facility] Medical History & Physical Date of Admission Dec 13, 2019 Date of Service: Dec 13, 2019 Attending Physician: MERLENE NICHOLAS MD History and Physical TIME OF SERVICE: 1126pm CHIEF COMPLAINT: finger redness HISTORY OF PRESENT ILLNESS: This 49 yr old F was admitted on Dec 05 w sepsis 2/2 right index finger cellulitis, wound cx grew Strep Pyogens she was discharged on the with ampicillin. Today the pain, swelling and redness of her finger became worse and she developed a fever. She denied having chills. The range of motion is limited because of the swelling. REVIEW OF SYSTEMS: 12 point review of systems negative except as listed in HPI PAST MEDICAL/ SURGICAL HISTORY: Hx of facial cellulitis SLE Depression Anxiety Fibromyalgia Chronic HTN Vitamin D def SOCIAL HISTORY: -tobacco, alcohol or drugs FAMILY HISTORY: CAD, DM, HTN, CA, leukemia, SLE, lung CA ALLERGIES: Please see below. HOME MEDICATIONS: Please see below. Vital Signs Date Time Temp Pulse Resp B/P (MAP) Pulse Ox O2 Delivery O2 Flow Rate FiO2 12/13/19 16:29 98.8 77 17 137/76 (96) 97 Room Air GENERAL APPEARANCE: well nourished/ well developed /NAD HEENT: no scleral icterus / EOMI CARDIOVASCULAR: RRR/NMRG LUNGS: CTAB on RA MUSCULOSKELETAL: DEEJAY in all extremities except right index finger where ROM is limited by swelling INTEGUMENT: the dorsal part of the right index finger is davis blue in color while the medial and lateral aspects are red, the finger is warm NEUROLOGICAL: CN -12 intact / speech not dysarthric PSYCHIATRIC: A&Ox 3 /able to understand and follow all commands LABORATORY DATA: 12/13/19 20:28 IMAGING: Finger xray pending... MICROBIOLOGY: pending... ASSESSMENT: is a 49 yr old w a hx of facial cellulitis & SLE was admitted last week for management of right index finger cellulitis despite initially responding well to abx and being discharged home w ampicillin she returned w worsening, pain and redness and will be admitted for recurrent right finger cellulitis. PLAN: 1 Right finger cellulitis No SIRS criteria Plan: admit to med surg/ ceftriaxone, vancomycin / day time team to consider ID and Ortho consults / f/u finger xray 2 SLE Plan: prednisone, Plaquenil, toradol 3 HTN Plan: amlodipine, HTCZ, Lisinopril 4 Fibromyalgia Plan: [place], lamotrigine DVT Px w Lovenox Dispo: home after more than 2 midnights stay Home Medications Scheduled Amlodipine Besylate (Amlodipine Besylate) 5 Mg Tablet, 5 MG PO DAILY Ampicillin Trihydrate (Ampicillin Trihydrate) 500 Mg Capsule, 500 MG PO TID Ergocalciferol (Vitamin D2) (Vitamin D2) 50,000 Units Cap, 50,000 UNITS PO 1XWK FRIDAY Hydrochlorothiazide (Hydrochlorothiazide) 25 Mg Tablet, 25 MG PO DAILY Hydroxychloroquine Sulfate (Hydroxychloroquine Sulfate) 200 Mg Tablet, 400 MG PO QPM TAKES AT 1800 Lamotrigine (Lamotrigine) 25 Mg Tablet, 50 MG PO BID Lisinopril (Lisinopril) 40 Mg Tablet, 40 MG PO DAILY Prednisone (Prednisone) 1 Mg Tablet, 5 MG PO QPM TAKES AT 1800 Vilazodone HCl (Viibryd) 40 Mg Tablet, 40 MG PO QPM TAKES AT 1800 Scheduled PRN Chlorhexidine Gluconate (Hibiclens) 118 Ml Liquid, 1 DOSE EXT DAILY PRN for RASH Hydrocodone/Acetaminophen (Hydrocodone-Acetamin 7.5-300) 1 Each Tablet, 1 TAB PO QID PRN for PAIN Ketorolac Tromethamine (Ketorolac Tromethamine) 10 Mg Tablet, 10 MG PO Q6H PRN for PAIN Allergies Coded Allergies: mycophenolate mofetil (Unverified Adverse Reaction, Unknown, 07/14/18) A-FIB/CHADSVASC A-FIB History Current/History of A-Fib/PAF?: No Current PO Anticoag Therapy: No MERLENE NICHOLAS MD Dec 13, 2019 23:42
[2019-12-13] MEDS ORDERED: VANCOMYCIN HCL 750 MG, VIAL MATE ADAPTER 1 EACH in D5W 250 ML IV SCH (23:45)
[2019-12-13] MEDS ORDERED: MOM 30ML SUSPENSION UDC PO PRN (23:45)
[2019-12-13] MEDS ORDERED: ACETAMINOPHEN TAB 650MG DOSE (2X325MG) PO PRN (23:45)
[2019-12-14 00:47] LABS: INR 0.98; PROTHROMBIN TIME 13.2 SECONDS (11.8-14.0)
[2019-12-14 02:00] VITALS: BP 120/76
[2019-12-14] MEDS ORDERED: ANEXSIA, NORCO 7.5MG/325MG TABLET(HYDROCODONE/APAP) PO PRN (02:00)
[2019-12-14] MEDS ORDERED: KETOROLAC TROMETHAMINE 10 MG TAB PO PRN (02:00)
[2019-12-14] MEDS: lamoTRIgine 25 MG TAB PO SCH ×3 (02:15→20:34)
[2019-12-14] MEDS ORDERED: VANCOMYCIN HCL 750 MG, VIAL MATE ADAPTER 1 EACH in D5W 250 ML IV ONE ×2 (02:30→03:30)
[2019-12-14 06:00] VITALS: BP 130/79
[2019-12-14 06:09] LABS: HEMATOCRIT 37.5 % (36.0-47.0); MEAN CORPUSCULAR HEMOGLOBIN 31.7 pg (27.0-33.0); MEAN CORPUSCULAR VOLUME 98.9 fl (80.0-96.0); PLATELET COUNT, AUTOMATED 269 10^3/uL (150-450); RED BLOOD COUNT 3.79 10^6/uL (4.00-5.40); WHITE BLOOD COUNT 10.7 10^3/uL (4.0-10.0)
[2019-12-14 06:32] LABS: BLOOD UREA NITROGEN 15 MG/DL (7-18); CARBON DIOXIDE LEVEL 28 MEQ/L (21-32); CHLORIDE LEVEL 110 MEQ/L (98-107); CREATININE FOR GFR 0.83 MG/DL (0.55-1.30); GLOMERULAR FILTRATION RATE > 60.0 (>51); GLUCOSE, FASTING 111 MG/DL (70-100); MAGNESIUM LEVEL 2.3 MG/DL (1.8-2.4); POTASSIUM SERUM 3.9 MEQ/L (3.5-5.1); SODIUM LEVEL 143 MEQ/L (136-145)
[2019-12-14] MEDS: lisinopriL 40 MG TAB PO SCH (08:39)
[2019-12-14] MEDS: hydroCHLOROthiazide 25 MG TAB PO SCH (08:39)
[2019-12-14] MEDS: amLODIPine 5 MG TAB PO SCH (08:40)
[2019-12-14] MEDS: cefTRIAXone SOD 2 GM in D5W MINI-BAG PLUS 50 ML IV SCH (08:40)
[2019-12-14] MEDS ORDERED: cefTRIAXone SOD 2 GM VIAL (J0696 PER 250MG) IM SCH (09:00)
--- NOTE | 2019-12-14 10:35 | IPNPDOC ---
Subjective Date Seen The patient was seen on 12/14/19. Subjective Chief Complaint/HPI decreased redness and swelling rt index finger General: Denies: ROS Unobtainable, Chills, Night Sweats, Fatigue, Malaise, No rmal Appetite, Other Symptoms Pulmonary: Denies: Dyspnea, Cough, Pleuritic Chest Pain, Other Symptoms Cardiovascular: Denies: Chest Pain, Palpitations, Orthopnea, Paroxysmal Noc. Dyspnea, Edema, Lt Headedness, Other Symptoms Gastrointestinal: Denies: Nausea, Vomiting, Abdominal Pain, Diarrhea, Constipation, Melena, Hematochezia, Other Symptoms Genitourinary: Denies: Dysuria, Frequency, Incontinence, Hematuria, Retention, Other Symptoms Musculoskeletal: Reports: Other Symptoms (rt index finger swelling and apin) Objective Physical Examination General Exam: Positive: Alert, Cooperative Eye Exam: Positive: PERRLA ENT Exam: Positive: Atraumatic Neck Exam: Positive: Supple Chest Exam: Positive: Normal air movement Heart Exam: Positive: Rate Normal, Normal S1, Normal S2 Abdomen Exam: Positive: Normal bowel sounds, Soft, Tenderness Extremity Exam: Positive: Other (residual swelling and discoloration of rt index finger noted, no redness beyond the finger) Assessment /Plan Problems (1) Cellulitis of right upper extremity Status: Acute Problem Text: Residual swelling and discoloration rt index finger No cellulitis except the affected finger Started on Zosyn and vanco Ortho consult called for further suggestions Wound C&S on previous admission: Strep Pyoderm Continue home meds Plan/VTE VTE Prophylaxis Ordered?: Yes VS, I&O, 24H, Fishbone Vital Signs/I&O Vital Signs Date Time Temp Pulse Resp B/P (MAP) Pulse Ox O2 Delivery O2 Flow Rate FiO2 12/14/19 08:40 65 118/78 12/14/19 06:00 98.1 16 99 Room Air I&O- Last 24 Hours up to 6 AM 12/14/19 06:00 Intake Total 1710 ml Output Total 800 ml Balance 910 ml Laboratory Data 24H LABS Laboratory Tests 2 12/13/19 20:28: Neutrophils (%) (Auto) , Nucleated Red Blood Cells % (auto) 0.0, Neutrophils 73H, Lymphocytes (Manual) 16, Monocytes (Manual) 7H, Eosinophils (Manual) 3, Basophils (Manual) 1, Anisocytosis 1+, Platelet Estimate NORMAL, Erythrocyte Sedimentation Rate 42H, Prothrombin Time 13.2, Prothromb Time International Ratio 0.98, Activated Partial Thromboplast Time 30.0, Anion Gap 3L, Glomerular Filtration Rate > 60.0, Lactic Acid Level 0.6, Calcium Level 8.8, C-Reactive Protein, Quantitative 1.26H 12/14/19 05:19: Nucleated Red Blood Cells % (auto) 0.0, Anion Gap 5L, Glomerular Filtration Rate > 60.0, Calcium Level 8.0L, Magnesium Level 2.3 CBC/BMP Laboratory Tests 12/13/19 20:28 12/14/19 05:19 Microbiology Microbiology 12/13/19 Blood Culture, Received Pending 12/13/19 Blood Culture, Received Pending OMID PEREZ MD Dec 14, 2019 10:35
[2019-12-14 14:00] VITALS: BP 114/72
[2019-12-14] MEDS: VANCOMYCIN HCL 1,000 MG, VIAL MATE ADAPTER 1 EACH in D5W 250 ML IV SCH (16:46)
[2019-12-14] MEDS: predniSONE 5 MG TAB PO SCH (18:51)
[2019-12-14] MEDS: HYDROXYCHLOROQUINE 200 MG TAB PO SCH (18:51)
[2019-12-14] MEDS ORDERED: ENTER DRUG NAME HERE (PATIENT'S OWN MED) PO SCH (21:00)
[2019-12-14 22:00] VITALS: BP 122/77
[2019-12-15] MEDS: VANCOMYCIN HCL 1,000 MG, VIAL MATE ADAPTER 1 EACH in D5W 250 ML IV SCH (03:35)
[2019-12-15 05:42] LABS: HEMATOCRIT 38.6 % (36.0-47.0); HEMOGLOBIN 12.6 g/dl (12.0-15.5); MEAN CORPUSCULAR HEMOGLOBIN 31.9 pg (27.0-33.0); MEAN CORPUSCULAR HGB CONC 32.6 g/dl (32.0-36.5); MEAN CORPUSCULAR VOLUME 97.7 fl (80.0-96.0); PLATELET COUNT, AUTOMATED 278 10^3/uL (150-450); RED BLOOD COUNT 3.95 10^6/uL (4.00-5.40); WHITE BLOOD COUNT 6.7 10^3/uL (4.0-10.0)
[2019-12-15 06:00] VITALS: BP 116/71
[2019-12-15 06:09] LABS: ALBUMIN 3.2 GM/DL (3.2-5.2); ALT/SGPT 25 U/L (12-78); BILIRUBIN,TOTAL 0.3 MG/DL (0.2-1.0); BLOOD UREA NITROGEN 15 MG/DL (7-18); CALCIUM LEVEL 8.8 MG/DL (8.5-10.1); CARBON DIOXIDE LEVEL 27 MEQ/L (21-32); CHLORIDE LEVEL 110 MEQ/L (98-107); CREATININE FOR GFR 0.81 MG/DL (0.55-1.30); GLOMERULAR FILTRATION RATE > 60.0 (>51); GLUCOSE, FASTING 115 MG/DL (70-100); POTASSIUM SERUM 3.9 MEQ/L (3.5-5.1); SODIUM LEVEL 144 MEQ/L (136-145); TOTAL PROTEIN 6.2 GM/DL (6.4-8.2)
[2019-12-15 06:26] LABS: BASOPHILS 3 % (0-1); LYMPHOCYTES 22 % (16-44); MONOCYTES 7 % (0-5); NEUTROPHILS 68 % (28-66); PLATELET ESTIMATE NORMAL (NORMAL)
--- NOTE | 2019-12-15 07:56 | CR ---
DATE OF CONSULTATION: 12/14/2019 REASON FOR CONSULTATION: Right index finger cellulitis. HISTORY OF PRESENT ILLNESS: This is a 49-year-old woman who was admitted on December 05 with sepsis and right index finger cellulitis. The wound culture grew Strep pyogenes, and she was discharged three days later on Ampicillin. She returned yesterday and was readmitted because of increased redness and swelling of the finger. She had apparently developed a fever, but has been afebrile in the hospital. No chills. She does notice some stiffness. Last week when this started, nine days ago, she had been doing some gardening and she wanted us to see if she could have gotten a small sliver from a [employer] plant or something similar in her finger. REVIEW OF SYSTEMS: Otherwise unremarkable except for her history and physical. PAST MEDICAL HISTORY: Notable for Vitamin D deficiency, chronic hypertension, fibromyalgia, anxiety, depression, lupus and facial cellulitis. FAMILY HISTORY: Coronary artery disease, diabetes, hypertension, cancer, leukemia, lupus. SOCIAL HISTORY: She denies tobacco, alcohol, or drug use. ALLERGIES: Include Mycophenolate Mofetil. HOME MEDICATIONS: Include: Amlodipine, Ampicillin, Vitamin D2, hydrochlorothiazide, Hydroxychloroquine sulfate, Lamotrigine, Lisinopril, prednisone, and Viibryd. She relates that today is finger is dramatically better than it was yesterday, just having been on antibiotics here. She does relate some stiffness in her finger. PHYSICAL EXAMINATION: Otherwise healthy woman in no acute distress. She is currently afebrile. She does have some redness of the finger mostly near the distal aspect of the index finger with some decreased sensation distally, likely due to the chronic swelling. She has what appears to be a blister over the dorsal aspect of the finger, but there is no clear fluid collection and no obvious foreign body. She has good range of motion of her MP joint. Her PIP joint has about 30 degrees of flexion and the DIP joint about 10 degrees of flexion. There is no red streaking. There is only mild swelling of the digit. There is no tenderness along the flexor side, along the palm and no evidence of any infected flexor tenosynovitis. Absolutely no red streaking of the arm, which she had last week. LABORATORY DATA: Include a current white count of 10.7 whereas it was 24 at one point. Sed rate is 42 currently and CRP was 14.2 on the 24th and is currently 1.26. So all of these are trending in the right direction. IMAGING STUDIES: X-ray was reviewed; there was no evidence of a foreign body. IMPRESSION: Right index finger cellulitis. She may have had a small laceration that started this or there could be a tiny foreign body from the [employer] plant, but clinically improving significantly. RECOMMENDATIONS: My recommendation is to continue with the I.V. antibiotics, and that is being done. I would encourage warm water soaks for 30 minutes four times a day and gentle range of motion of the finger. Will follow if she stays in the hospital. Would recommend follow-up in the orthopedic office in 5 to 7 days for a recheck. She may eventually need occupational therapy, but I would not encourage aggressive motion at this point just due to concern of compromising the skin. All questions were answered. Patient was appreciated for the visit. Thank you for the consult. CHRIS
[2019-12-15] MEDS: amLODIPine 5 MG TAB PO SCH (09:38)
[2019-12-15] MEDS: hydroCHLOROthiazide 25 MG TAB PO SCH (09:38)
[2019-12-15] MEDS: lamoTRIgine 25 MG TAB PO SCH ×2 (09:38→20:55)
[2019-12-15] MEDS: lisinopriL 40 MG TAB PO SCH (09:38)
[2019-12-15] MEDS: cefTRIAXone SOD 2 GM in D5W MINI-BAG PLUS 50 ML IV SCH (09:41)
--- NOTE | 2019-12-15 11:33 | IPNPDOC ---
Subjective Date Seen The patient was seen on 12/15/19. Subjective Chief Complaint/HPI pt feels better, decreased swelling of rt index finger General: Denies: ROS Unobtainable, Chills, Night Sweats, Fatigue, Malaise, Normal Appetite, Other Symptoms Pulmonary: Denies: Dyspnea, Cough, Pleuritic Chest Pain, Other Symptoms Cardiovascular: Denies: Chest Pain, Palpitations, Orthopnea, Paroxysmal Noc. Dyspnea, Edema, Lt Headedness, Other Symptoms Gastrointestinal: Denies: Nausea, Vomiting, Abdominal Pain, Diarrhea, Constipation, Melena, Hematochezia, Other Symptoms Musculoskeletal: Reports: Other Symptoms (swelling rt index finger) Neurological: Denies: Weakness, Numbness, Incoordination, Change in speech, Confusion, Seizures, Other Symptoms Objective Physical Examination Chest Exam: Positive: Normal air movement Heart Exam: Positive: Rate Normal, Normal S1, Normal S2 Abdomen Exam: Positive: Normal bowel sounds, Soft, Tenderness Extremity Exam: Positive: Other (decreased swelling rt index finger with old skin changes) Assessment /Plan Problems (1) Cellulitis of right upper extremity Status: Acute Problem Text: Residual swelling and discoloration rt index finger No cellulitis except the affected finger improving swelling and skin changes at right index finger Ortho consult appreciated Warm soaks as per orders DC Vanco but continue Zosyn probable DC im am on PO levaquin or Avelox Wound C&S on previous admission: Strep Pyoderm sensative to multiple anti Bx including Floroquinolones Continue home meds Plan/VTE VTE Prophylaxis Ordered?: Yes VS, I&O, 24H, Fishbone Vital Signs/I&O Vital Signs Date Time Temp Pulse Resp B/P (MAP) Pulse Ox O2 Delivery O2 Flow Rate FiO2 12/15/19 09:38 64 132/74 12/15/19 06:00 98.0 18 96 Room Air I&O- Last 24 Hours up to 6 AM 12/15/19 05:59 Intake Total 1575 ml Output Total 3100 ml Balance -1525 ml Laboratory Data 24H LABS Laboratory Tests 2 12/15/19 05:17: Neutrophils (%) (Auto) , Nucleated Red Blood Cells % (auto) 0.0, Neutrophils 68H, Lymphocytes (Manual) 22, Monocytes (Manual) 7H, Basophils (Manual) 3H, Red Blood Cell Morphology NORMAL, Platelet Estimate NORMAL, Anion Gap 7L, Glomerular Filtration Rate > 60.0, Calcium Level 8.8, Total Bilirubin 0.3, Aspartate Amino Transf (AST/SGOT) 12, Alanine Aminotransferase (ALT/SGPT) 25, Alkaline Phosphatase 62, Total Protein 6.2L, Albumin 3.2, Albumin/Globulin Ratio 1.1L CBC/BMP Laboratory Tests 12/15/19 05:17 Microbiology Microbiology 12/13/19 Blood Culture - Preliminary, Resulted No growth after 24 hours . All specim... 12/13/19 Blood Culture - Preliminary, Resulted No growth after 24 hours . All specim... OMID PEREZ MD Dec 15, 2019 11:33
[2019-12-15 14:00] VITALS: BP 126/70
[2019-12-15] MEDS: predniSONE 5 MG TAB PO SCH (17:59)
[2019-12-15] MEDS: HYDROXYCHLOROQUINE 200 MG TAB PO SCH (17:59)
[2019-12-15 22:00] VITALS: BP 103/63
[2019-12-16 06:00] VITALS: BP 120/62
[2019-12-16 06:29] LABS: HEMOGLOBIN 12.9 g/dl (12.0-15.5); MEAN CORPUSCULAR HEMOGLOBIN 31.8 pg (27.0-33.0); MEAN CORPUSCULAR HGB CONC 32.3 g/dl (32.0-36.5); MEAN CORPUSCULAR VOLUME 98.5 fl (80.0-96.0); PLATELET COUNT, AUTOMATED 316 10^3/uL (150-450); RED BLOOD COUNT 4.06 10^6/uL (4.00-5.40); WHITE BLOOD COUNT 7.1 10^3/uL (4.0-10.0)
[2019-12-16 07:13] LABS: BASOPHILS 2 % (0-1); EOSINOPHILS 1 % (0-3); LYMPHOCYTES 24 % (16-44); MONOCYTES 2 % (0-5); NEUTROPHILS 71 % (28-66); PLATELET ESTIMATE NORMAL (NORMAL)
[2019-12-16] MEDS: lamoTRIgine 25 MG TAB PO SCH ×2 (08:18→20:11)
[2019-12-16] MEDS: hydroCHLOROthiazide 25 MG TAB PO SCH (08:18)
[2019-12-16] MEDS: lisinopriL 40 MG TAB PO SCH (08:18)
[2019-12-16] MEDS: cefTRIAXone SOD 2 GM in D5W MINI-BAG PLUS 50 ML IV SCH (08:19)
[2019-12-16] MEDS: amLODIPine 5 MG TAB PO SCH (08:19)
--- NOTE | 2019-12-16 11:38 | IPNPDOC ---
Subjective Date Seen The patient was seen on 12/16/19. Subjective Chief Complaint/HPI feeling better, no new complaints General: Denies: ROS Unobtainable, Chills, Night Sweats, Fatigue, Malaise, Normal Appetite, Other Symptoms Constitutional: Denies: Chills, Fever, Malaise, Night Sweats, Weakness, Fatigue, Weight Loss, Lethargy, Other Pulmonary: Denies: Dyspnea, Cough, Pleuritic Chest Pain, Other Symptoms Cardiovascular: Denies: Chest Pain, Palpitations, Orthopnea, Paroxysmal Noc. Dyspnea, Edema, Lt Headedness, Other Symptoms Gastrointestinal: Denies: Nausea, Vomiting, Abdominal Pain, Diarrhea, Constipation, Melena, Hematochezia, Other Symptoms Musculoskeletal: Denies: Neck Pain, Back Pain, Shoulder Pain, Arm Pain, Hand Pain, Leg Pain, Foot Pain, Joint Pain, Muscle Pain, Spasms, Other Symptoms Neurological: Denies: Weakness, Numbness, Incoordination, Change in speech, Confusion, Seizures, Other Symptoms Objective Physical Examination Chest Exam: Positive: Normal air movement Heart Exam: Positive: Rate Normal, Normal S1, Normal S2 Abdomen Exam: Positive: Normal bowel sounds, Soft, Tenderness Extremity Exam: Positive: Other (decreased swelling rt index finger with old skin changes) Assessment /Plan Problems (1) Cellulitis of right upper extremity Status: Acute Problem Text: Residual swelling and discoloration rt index finger No cellulitis except the affected finger improving swelling and skin changes at right index finger Ortho consult appreciated Warm soaks as per orders Continue Rocephin as per orders Wound C&S on previous admission: Strep Pyoderm sensative to multiple anti Bx including Floroquinolones Probably needs few days of IV anti Bx as per Ortho recs: PT/OT has seen pt. with gentle flexion /extention excercises of rt index finger Continue home meds Plan/VTE VTE Prophylaxis Ordered?: Yes VS, I&O, 24H, Fishbone Vital Signs/I&O Vital Signs Date Time Temp Pulse Resp B/P (MAP) Pulse Ox O2 Delivery O2 Flow Rate FiO2 12/16/19 08:19 66 132/74 12/16/19 06:00 97.4 18 96 Room Air I&O- Last 24 Hours up to 6 AM 12/16/19 06:00 Intake Total 2850 ml Output Total 2750 ml Balance 100 ml Laboratory Data 24H LABS Laboratory Tests 2 12/16/19 05:27: Neutrophils (%) (Auto) , Nucleated Red Blood Cells % (auto) 0.0, Neutrophils 71H, Lymphocytes (Manual) 24, Monocytes (Manual) 2, Eosinophils (Manual) 1, Basophils (Manual) 2H, Red Blood Cell Morphology NORMAL, Platelet Estimate NORMAL CBC/BMP Laboratory Tests 12/16/19 05:27 Microbiology Microbiology 12/13/19 Blood Culture - Preliminary, Resulted No Growth after 48 hours. All Specime... 12/13/19 Blood Culture - Preliminary, Resulted No Growth after 48 hours. All Specime... OMID PEREZ MD Dec 16, 2019 11:38
[2019-12-16 14:00] VITALS: BP 128/68
[2019-12-16] MEDS: predniSONE 5 MG TAB PO SCH (16:57)
[2019-12-16] MEDS: HYDROXYCHLOROQUINE 200 MG TAB PO SCH (16:57)
[2019-12-16 22:00] VITALS: BP 133/83
[2019-12-17 06:00] VITALS: BP 116/68
[2019-12-17 07:14] LABS: HEMATOCRIT 42.1 % (36.0-47.0); HEMOGLOBIN 13.6 g/dl (12.0-15.5); MEAN CORPUSCULAR HEMOGLOBIN 31.6 pg (27.0-33.0); MEAN CORPUSCULAR HGB CONC 32.3 g/dl (32.0-36.5); MEAN CORPUSCULAR VOLUME 97.7 fl (80.0-96.0); PLATELET COUNT, AUTOMATED 310 10^3/uL (150-450); RED BLOOD COUNT 4.31 10^6/uL (4.00-5.40); WHITE BLOOD COUNT 7.4 10^3/uL (4.0-10.0)
[2019-12-17 07:43] LABS: ALBUMIN 3.2 GM/DL (3.2-5.2); ALT/SGPT 27 U/L (12-78); BILIRUBIN,TOTAL 0.4 MG/DL (0.2-1.0); BLOOD UREA NITROGEN 21 MG/DL (7-18); CALCIUM LEVEL 8.6 MG/DL (8.5-10.1); CARBON DIOXIDE LEVEL 27 MEQ/L (21-32); CHLORIDE LEVEL 108 MEQ/L (98-107); CREATININE FOR GFR 0.98 MG/DL (0.55-1.30); GLOMERULAR FILTRATION RATE > 60.0 (>51); GLUCOSE, FASTING 77 MG/DL (70-100); POTASSIUM SERUM 3.5 MEQ/L (3.5-5.1); SODIUM LEVEL 143 MEQ/L (136-145); TOTAL PROTEIN 6.8 GM/DL (6.4-8.2)
[2019-12-17 08:07] LABS: ATYPICAL LYMPH 7 % (0-5); EOSINOPHILS 5 % (0-3); LYMPHOCYTES 26 % (16-44); MONOCYTES 11 % (0-5); NEUTROPHILS 51 % (28-66)
[2019-12-17 08:12] LABS: ANISOCYTOSIS 1+; PLATELET ESTIMATE NORMAL (NORMAL)
[2019-12-17] MEDS: cefTRIAXone SOD 2 GM in D5W MINI-BAG PLUS 50 ML IV SCH (08:13)
[2019-12-17 08:14] VITALS: BP 132/77
[2019-12-17] MEDS: amLODIPine 5 MG TAB PO SCH (08:14)
[2019-12-17] MEDS: hydroCHLOROthiazide 25 MG TAB PO SCH (08:14)
[2019-12-17] MEDS: lisinopriL 40 MG TAB PO SCH (08:14)
[2019-12-17] MEDS: lamoTRIgine 25 MG TAB PO SCH (08:15)
[2019-12-17] MEDS ORDERED: DOXY-350 PO (12:41)
--- NOTE | 2019-12-17 21:33 | DS.PDOC ---
Discharge Summary General Date of Admission Dec 13, 2019 at 23:38 Date of Discharge 12/17/19 Discharge Summary PROCEDURES PERFORMED DURING STAY: [None]. ADMITTING DIAGNOSES: Cellulitis of right upper extremity DISCHARGE DIAGNOSES: Cellulitis of right upper extremity COMPLICATIONS/CHIEF COMPLAINT: Celulitus Of Right Index Finger. HISTORY OF PRESENT ILLNESS: is a 49 yr old w a hx of facial cellulitis & SLE was admitted last week for management of right index finger cellulitis despite initially responding well to abx and being discharged home w ampicillin she returned w worsening, pain and redness and will be admitted for recurrent right finger cellulitis. HOSPITAL COURSE: During hospital stay pt received treatment with Ceftriaxone with positive effect DISCHARGE MEDICATIONS: Please see below. ALLERGIES: Please see below. PHYSICAL EXAMINATION ON DISCHARGE: GENERAL APPEARANCE: well nourished/ well developed /NAD HEENT: no scleral icterus / EOMI CARDIOVASCULAR: RRR/NMRG LUNGS: CTAB on RA MUSCULOSKELETAL: DEEJAY in all extremities except right index finger where ROM is limited by swelling INTEGUMENT: the dorsal part of the right index finger is pink, in the stage of healing NEUROLOGICAL: CN -12 intact / speech not dysarthric PSYCHIATRIC: A&Ox 3 /able to understand and follow all commands LABORATORY DATA: Please see below. PROGNOSIS: fair ACTIVITY: [As tolerated]. DIET: regular DISPOSITION: 01 Home, Self-Care. DISCHARGE INSTRUCTIONS: c/w abs ITEMS TO FOLLOWUP ON ON OUTPATIENT: f/u with ortho team in 1 week DISCHARGE CONDITION: [Stable]. TIME SPENT ON DISCHARGE: Greater than 20 minutes. Vital Signs/I&Os Vital Signs Date Time Temp Pulse Resp B/P (MAP) Pulse Ox O2 Delivery O2 Flow Rate FiO2 12/17/19 08:14 66 132/77 12/17/19 06:00 97.2 19 100 Room Air I&O- Last 24 Hours up to 6 AM 12/17/19 06:00 Intake Total 1460 ml Output Total 400 ml Balance 1060 ml Laboratory Data Labs 24H Laboratory Tests 2 12/17/19 07:01: Neutrophils (%) (Auto) , Nucleated Red Blood Cells % (auto) 0.0, Neutrophils 51, Lymphocytes (Manual) 26, Monocytes (Manual) 11H, Eosinophils (Manual) 5H, Atypical Lymphocytes 7H, Anisocytosis 1+, Macrocytosis 1+, Platelet Estimate NORMAL, Anion Gap 8, Glomerular Filtration Rate > 60.0, Calcium Level 8.6, Total Bilirubin 0.4, Aspartate Amino Transf (AST/SGOT) 14, Alanine Aminotransferase (ALT/SGPT) 27, Alkaline Phosphatase 62, Total Protein 6.8, Albumin 3.2, Albumin/Globulin Ratio 0.9L CBC/BMP Laboratory Tests 12/17/19 07:01 Microbiology Microbiology 12/13/19 Blood Culture - Preliminary, Resulted No Growth after 72 hours. All specime... 12/13/19 Blood Culture - Preliminary, Resulted No Growth after 72 hours. All specime... Discharge Medications Scheduled Amlodipine Besylate (Amlodipine Besylate) 5 Mg Tablet, 5 MG PO DAILY, (Reported) Doxycycline Monohydrate (Doxycycline) 100 Mg Capsule, 1 CAP PO BID Ergocalciferol (Vitamin D2) (Vitamin D2) 50,000 Units Cap, 50,000 UNITS PO 1XWK, (Reported) FRIDAY Hydrochlorothiazide (Hydrochlorothiazide) 25 Mg Tablet, 25 MG PO DAILY, (Reported) Hydroxychloroquine Sulfate (Hydroxychloroquine Sulfate) 200 Mg Tablet, 400 MG PO QPM, (Reported) TAKES AT 1800 Lamotrigine (Lamotrigine) 25 Mg Tablet, 50 MG PO BID, (Reported) Lisinopril (Lisinopril) 40 Mg Tablet, 40 MG PO DAILY, (Reported) Prednisone (Prednisone) 1 Mg Tablet, 5 MG PO QPM, (Reported) TAKES AT 1800 Vilazodone HCl (Viibryd) 40 Mg Tablet, 40 MG PO QPM, (Reported) TAKES AT 1800 Scheduled PRN Chlorhexidine Gluconate (Hibiclens) 118 Ml Liquid, 1 DOSE EXT DAILY PRN for RASH, (Reported) Hydrocodone/Acetaminophen (Hydrocodone-Acetamin 7.5-300) 1 Each Tablet, 1 TAB PO QID PRN for PAIN, (Reported) Ketorolac Tromethamine (Ketorolac Tromethamine) 10 Mg Tablet, 10 MG PO Q6H PRN for PAIN, (Reported) Allergies Coded Allergies: mycophenolate mofetil (Unverified Adverse Reaction, Unknown, 07/14/18) JOSEPH LOPEZ DO Dec 17, 2019 21:33
--- NOTE | 2020-01-10 16:16 | REP ---
FINGER RADIOGRAPH SERIES CLINICAL: Cellulitis. TECHNIQUE: AP, lateral, and bilateral oblique of the right second digit. FINDINGS: Soft tissue swelling primarily overlying the mid and distal phalanges. No obvious acute fracture or dislocation. No periosteal reaction. No subcutaneous emphysema or foreign body. IMPRESSION: Soft tissue swelling consistent with the given history of cellulitis. No obvious bony involvement, subcutaneous emphysema, or foreign body. [facility]
== END 2019-12-17 14:21 | disposition home or self-care (01) | DRG 383 ==
LOC: M ED 16:24 → M ED INP 23:38 → ENRESERV 12-14 01:15 → M MSPAV 12-14 01:56
PROVIDERS: ADMIT Internal Medicine; ATTEND Internal Medicine
DX: L03.011 Cellulitis of right finger (principal); M32.9 Systemic lupus erythematosus, unspecified; F32.9 Major depressive disorder, single episode, unspecified; F41.9 Anxiety disorder, unspecified; M79.7 Fibromyalgia; I10 Essential (primary) hypertension; E55.9 Vitamin D deficiency, unspecified; Z79.52 Long term (current) use of systemic steroids; Z79.899 Other long term (current) drug therapy; Z88.8 Allergy status to other drugs, medicaments and biological substances; B95.5 Unspecified streptococcus as the cause of diseases classified elsewhere

== ENCOUNTER → 2020-07-24 | Outpatient (REF) | payer BC ==
[~2020-07-24] MED LIST changes: +DOXY-350 PO; +ESCI10TA16 PO; -ESCI10TA2 PO; +HYDR-3490 PO; -HYDR25TAB PO; +KETO10TAB PO; +LISI10TA22 PO; -LISI10TA4 PO; -LISI40TA PO; +LISI40TA4 PO; +PRED1TABL PO
[2020-07-24 16:59] LABS: ALBUMIN 4.1 GM/DL (3.2-5.2); BILIRUBIN,TOTAL 0.3 MG/DL (0.2-1.0); CHOLESTEROL RISK RATIO 3.561 (<5); CREATININE FOR GFR 1.09 MG/DL (0.55-1.30); GLOMERULAR FILTRATION RATE 56.3 (>51)
[2020-07-24 17:04] LABS: TOTAL 25(OH) VITAMIN D 19.8 NG/ML (30.0-100.0)
== END ==
LOC: M SFHCCLAY 09:47
PROVIDERS: ATTEND Nurse Practitioner Family
DX: I10 Essential (primary) hypertension (principal); E78.5 Hyperlipidemia, unspecified; E55.9 Vitamin D deficiency, unspecified

== ENCOUNTER → 2020-10-18 | Outpatient (REF) | payer BC ==
[~2020-10-18] MED LIST changes: +ERGO500029 PO; -VITA50005 PO
== END ==
LOC: M LAB REF 17:31
PROVIDERS: ATTEND Physician Assistant
DX: R21 Rash and other nonspecific skin eruption (principal)

== ENCOUNTER → 2020-10-23 | Outpatient (REF) | payer BC ==
[2020-10-23 16:40] LABS: BLOOD UREA NITROGEN 18 MG/DL (7-18); CALCIUM LEVEL 9.2 MG/DL (8.5-10.1); CARBON DIOXIDE LEVEL 30 MEQ/L (21-32); CHLORIDE LEVEL 108 MEQ/L (98-107); CHOLESTEROL LEVEL 230 MG/DL (<200); CHOLESTEROL RISK RATIO 4.509 (<5); CREATININE FOR GFR 1.01 MG/DL (0.55-1.30); GLOMERULAR FILTRATION RATE > 60.0 (>51); GLUCOSE, FASTING 89 MG/DL (70-100); HDL CHOLESTEROL 51 MG/DL (>40); LDL CHOLESTEROL 159 MG/DL (<100); NON-HDL-C 179 MG/DL; POTASSIUM SERUM 4.6 MEQ/L (3.5-5.1); SODIUM LEVEL 142 MEQ/L (136-145); TRIGLYCERIDES LEVEL 99 MG/DL (<150)
[2020-10-23 16:45] LABS: TOTAL 25(OH) VITAMIN D 62.3 NG/ML (30.0-100.0)
== END ==
LOC: M SFHCCLAY 10:16
PROVIDERS: ATTEND Family Medicine
DX: E78.5 Hyperlipidemia, unspecified (principal); I10 Essential (primary) hypertension; E55.9 Vitamin D deficiency, unspecified

== ENCOUNTER → 2021-03-13 | Outpatient (REF) | payer BC ==
[2021-03-13 12:13] LABS: BLOOD UREA NITROGEN 23 MG/DL (7-18); CALCIUM LEVEL 8.7 MG/DL (8.5-10.1); CARBON DIOXIDE LEVEL 25 MEQ/L (21-32); CHLORIDE LEVEL 113 MEQ/L (98-107); CREATININE FOR GFR 0.84 MG/DL (0.55-1.30); GLOMERULAR FILTRATION RATE > 60.0 (>51); GLUCOSE, FASTING 86 MG/DL (70-100); POTASSIUM SERUM 3.9 MEQ/L (3.5-5.1); SODIUM LEVEL 145 MEQ/L (136-145); TOTAL 25(OH) VITAMIN D 49.2 NG/ML (30.0-100.0)
== END ==
LOC: M SFHCCLAY 08:32
PROVIDERS: ATTEND Family Medicine
DX: E55.9 Vitamin D deficiency, unspecified (principal); I11.9 Hypertensive heart disease without heart failure

== ENCOUNTER → 2021-11-05 | Outpatient (REF) | payer BC ==
[2021-11-05 16:04] LABS: HEMATOCRIT 39.4 % (36.0-47.0); HEMOGLOBIN 12.9 g/dl (12.0-15.5); MEAN CORPUSCULAR HEMOGLOBIN 32.2 pg (27.0-33.0); MEAN CORPUSCULAR HGB CONC 32.7 g/dl (32.0-36.5); MEAN CORPUSCULAR VOLUME 98.3 fl (80.0-96.0); PLATELET COUNT, AUTOMATED 174 10^3/uL (150-450); RED BLOOD COUNT 4.01 10^6/uL (4.00-5.40); WHITE BLOOD COUNT 10.6 10^3/uL (4.0-10.0)
[2021-11-05 20:02] LABS: ALT/SGPT 20 IU/L (0-32); BILIRUBIN,TOTAL 0.2 MG/DL (0.2-1.0); BLOOD UREA NITROGEN 15 MG/DL (7-18); CALCIUM LEVEL 8.8 MG/DL (8.5-10.1); CARBON DIOXIDE LEVEL 25 mmol/L (20-29); CHLORIDE LEVEL 111 MEQ/L (98-107); CHOLESTEROL LEVEL 173 MG/DL (<200); CREATININE FOR GFR 0.91 MG/DL (0.55-1.30); GLOMERULAR FILTRATION RATE > 60.0 (>51); GLUCOSE, FASTING 92 MG/DL (70-100); POTASSIUM SERUM 3.7 MEQ/L (3.5-5.1); SODIUM LEVEL 143 MEQ/L (136-145); TRIGLYCERIDES LEVEL 93 MG/DL (<150)
[2021-11-05 20:03] LABS: ALBUMIN 3.9 GM/DL (3.2-5.2); CHOLESTEROL RISK RATIO 3.392 (<5); HDL CHOLESTEROL 51 MG/DL (>40); LDL CHOLESTEROL 103.4 MG/DL (<100); NON-HDL-C 122 MG/DL; TOTAL PROTEIN 6.6 GM/DL (6.4-8.2)
== END ==
LOC: M SFHCCLAY 08:28
PROVIDERS: ATTEND Nurse Practitioner Family
DX: M32.9 Systemic lupus erythematosus, unspecified (principal); E55.9 Vitamin D deficiency, unspecified; I11.9 Hypertensive heart disease without heart failure

== ENCOUNTER → 2022-04-21 | Outpatient (CLI) | payer BC ==
[~2022-04-21] MED LIST changes: +AZAT50TA37 PO; +BENL200I SQ; -DOXY-350 PO; +DOXY-444 PO; +LAMO100T3 PO; +VILA40TA PO
== END ==
LOC: M LABSMTC 11:24
PROVIDERS: ATTEND Anesthesiology
DX: Z01.818 Encounter for other preprocedural examination (principal); Z11.52 Encounter for screening for COVID-19

== ENCOUNTER 2022-04-24 08:35 | Day surgery (SDC) | payer BC ==
[~2022-04-24] VITALS: Ht 167.6 cm; Wt 68.0 kg
[~2022-04-24 08:35] MED LIST changes: +NS 1,000 ML IV ONE
[2022-04-24 08:43] VITALS: BP 175/85
[2022-04-24] MEDS ORDERED: GLYCOPYRROLATE INJ 0.2 MG/ML 2 ML VIAL As Ordered ONE (09:48)
[2022-04-24] MEDS ORDERED: propofoL 200 MG/20 ML VIAL As Ordered ONE (09:48)
[2022-04-24] MEDS ORDERED: LIDOCAINE 2% 100MG/5ML SDV (FOR ANES.) As Ordered ONE (09:48)
== END 2022-04-24 10:30 | disposition home or self-care (01) ==
LOC: M OPP 08:35
PROVIDERS: ATTEND Surgery
DX: Z12.11 Encounter for screening for malignant neoplasm of colon (principal); Z80.0 Family history of malignant neoplasm of digestive organs; Z53.8 Procedure and treatment not carried out for other reasons

== ENCOUNTER → 2022-11-07 | Outpatient (REF) | payer BC ==
[~2022-11-07] MED LIST changes: -HYDR200T3 PO; +HYDR200T46 PO; -NS 1,000 ML IV ONE
[2022-11-07 18:34] LABS: CHOLESTEROL RISK RATIO 3.93 (<5); HDL CHOLESTEROL 43.7 MG/DL (>40); LDL CHOLESTEROL 109.3 MG/DL (<100); NON-HDL-C 128.3 MG/DL
== END ==
LOC: M SFHCCLAY 11:37
PROVIDERS: ATTEND Nurse Practitioner Family
DX: E78.5 Hyperlipidemia, unspecified (principal)

== ENCOUNTER → 2023-07-29 | Outpatient (REF) | payer BC ==
[~2023-07-29] MED LIST changes: -LEFL1TAB4 PO; +LEFL20TA15 PO
[2023-07-29 18:14] LABS: BASO # 0.1 10^3/uL (0.0-0.2); BASO % 0.8 % (0.0-1.0); EOS # 0.2 10^3/uL (0.0-0.5); EOS % 1.4 % (0.0-3.0); HEMATOCRIT 42.9 % (36.0-47.0); HEMOGLOBIN 14.1 g/dl (12.0-15.5); LYMPH # 2.9 10^3/uL (1.5-5.0); LYMPH % 19.9 % (24.0-44.0); MEAN CORPUSCULAR HEMOGLOBIN 32.9 pg (27.0-33.0); MEAN CORPUSCULAR HGB CONC 32.9 g/dl (32.0-36.5); MONO # 0.7 10^3/uL (0.0-0.8); MONO % 4.5 % (2.0-8.0); NEUTROPHILS # 10.7 10^3/uL (1.5-8.5); NEUTROPHILS % 73.1 % (36.0-66.0); PLATELET COUNT, AUTOMATED 204 10^3/uL (150-450); RED BLOOD COUNT 4.29 10^6/uL (4.00-5.40); WHITE BLOOD COUNT 14.7 10^3/uL (4.0-10.0)
[2023-07-29 18:21] LABS: ERYTHROCYTE SEDIMENTATION RATE 23 mm/hr (0-30)
[2023-07-29 18:53] LABS: ALBUMIN 3.7 G/DL (3.2-5.2); ALKALINE PHOSPHATASE 72 U/L (46-116); ALT/SGPT 19 U/L (7.0-40); AST/SGOT 15 U/L (<34); BILIRUBIN,TOTAL 0.4 MG/DL (0.3-1.2); BLOOD UREA NITROGEN 15 MG/DL (9-23); C REACTIVE PROTEIN QUANTITATIV < 0.40 MG/DL (<1.0); CARBON DIOXIDE LEVEL 29 MMOL/L (20-31); CHLORIDE LEVEL 109 MMOL/L (98-107); CREATININE FOR GFR 0.84 MG/DL (0.55-1.30); GLOMERULAR FILTRATION RATE > 60.0 (>51); GLUCOSE, FASTING 92 MG/DL (60-100); POTASSIUM SERUM 3.8 MMOL/L (3.5-5.1); RHEUMATOID FACTOR QUANT 13.4 IU/ML (<14); SODIUM LEVEL 144 MMOL/L (136-145); TOTAL PROTEIN 6.7 G/DL (5.7-8.2); URIC ACID 3.8 MG/DL (3.1-7.8)
== END ==
LOC: M SFHCDERM 11:30
PROVIDERS: ATTEND Physician Assistant
DX: L93.2 Other local lupus erythematosus (principal)

== ENCOUNTER → 2024-04-01 | Outpatient (REF) | payer BC ==
[~2024-04-01] MED LIST changes: +DOXY-440 PO; -DOXY-444 PO
[2024-04-01 18:55] LABS: ALBUMIN 3.7 G/DL (3.2-5.2); ALKALINE PHOSPHATASE 68 U/L (35-104); ALT/SGPT 16 U/L (7.0-40); AST/SGOT 17 U/L (<34); BILIRUBIN,TOTAL 0.2 MG/DL (0.3-1.2); BLOOD UREA NITROGEN 12 MG/DL (9-23); CARBON DIOXIDE LEVEL 28 MMOL/L (20-31); CHLORIDE LEVEL 109 MMOL/L (98-107); CHOLESTEROL LEVEL 188 MG/DL (<200); CHOLESTEROL RISK RATIO 3.99 (<5); CREATININE FOR GFR 0.86 MG/DL (0.55-1.30); GLOMERULAR FILTRATION RATE > 60.0 (>51); GLUCOSE, FASTING 90 MG/DL (60-100); HDL CHOLESTEROL 47.1 MG/DL (>40); LDL CHOLESTEROL 125.1 MG/DL (<100); NON-HDL-C 140.9 MG/DL; POTASSIUM SERUM 4.5 MMOL/L (3.5-5.1); SODIUM LEVEL 145 MMOL/L (136-145); THYROID STIMULATING HORMONE 2.814 uIU/ML (0.55-4.78); TOTAL PROTEIN 6.6 G/DL (5.7-8.2); TRIGLYCERIDES LEVEL 79 MG/DL (<150)
[2024-04-01 18:56] LABS: FREE T4 0.99 NG/DL (0.89-1.76)
[2024-04-01 19:05] LABS: HEMOGLOBIN A1c 5.5 % (4.0-6.0)
== END ==
LOC: M SFHCCLAY 09:59
PROVIDERS: ATTEND Nurse Practitioner Family
DX: F32.9 Major depressive disorder, single episode, unspecified (principal); I10 Essential (primary) hypertension; E78.5 Hyperlipidemia, unspecified; M32.9 Systemic lupus erythematosus, unspecified; F41.9 Anxiety disorder, unspecified

== ENCOUNTER → 2024-04-12 | Outpatient (REF) | payer BC ==
[2024-04-12 16:55] LABS: APPEARANCE, URINE HAZY (CLEAR); BACTERIA, URINE AUTO NEGATIVE (NEGATIVE); BILIRUBIN, URINE AUTO NEGATIVE (NEGATIVE); BLOOD, URINE BLOOD NEGATIVE (NEGATIVE); COLOR, URINE YELLOW (YELLOW); GLUCOSE, URINE (UA) AUTO NEGATIVE (NEGATIVE); KETONE, URINE AUTO TRACE mg/dL (NEGATIVE); LEUKOCYTE ESTERASE, URINE AUTO NEGATIVE (NEGATIVE); MUCUS, URINE SMALL (NEGATIVE); NITRITE, URINE AUTO NEGATIVE (NEGATIVE); PROTEIN, URINE AUTO NEGATIVE (NEGATIVE); RBC, URINE AUTO 0 /HPF (0-3); SPECIFIC GRAVITY URINE AUTO 1.021 (1.002-1.035); SQUAMOUS EPITHELIAL CELL UR AU 0 /HPF (0-6); WBC, URINE AUTO 1 /HPF (0-3)
[2024-04-12 17:24] LABS: TOTAL PROTEIN,RANDOM URINE 10.9 MG/DL (0.0-14.0)
[2024-04-12 17:29] LABS: CREATININE,RANDOM URINE 189.3 MG/DL
[2024-04-12 18:54] LABS: C REACTIVE PROTEIN QUANTITATIV < 0.50 MG/DL (<1.0); IMMUNOGLOBULIN A 342.7 MG/DL (40-350)
[2024-04-12 18:55] LABS: COMPLEMENT C3 127.3 MG/DL (90.0-170.0); IMMUNOGLOBULIN G 791 MG/DL (650-1600)
[2024-04-12 18:56] LABS: TOTAL 25(OH) VITAMIN D 30.8 NG/ML (20.0-100.0)
[2024-04-12 19:02] LABS: HEPATITIS B SURFACE ANTIBODY NEGATIVE (POSITIVE)
[2024-04-12 19:14] LABS: HEPATITIS B SURFACE ANTIGEN NEGATIVE (NEGATIVE)
[2024-04-12 19:34] LABS: HEPATITIS C VIRUS ABY INDEX < 0.02 INDEX (<0.8)
[2024-04-12 19:57] LABS: IMMUNOGLOBULIN M 41.7 MG/DL (50-300)
[2024-04-14 09:52] LABS: T P ELECTROPHORESIS SO 7.2 g/dL (6.1-8.1)
[2024-04-14 11:03] LABS: HEPATITIS B CORE ANTIBODY IGG NON-REACTIVE (NON-REACTIVE)
[2024-04-16 08:12] LABS: ALBUMIN SPEP 4.5 g/dL (3.8-4.8); ALPHA-1-GLOBULINS SO 0.3 g/dL (0.2-0.3); ALPHA-2-GLOBULINS SO 0.8 g/dL (0.5-0.9); BETA 2 GLOBULIN 0.5 g/dL (0.2-0.5); BETA-GLOBULIN SO 0.5 g/dL (0.4-0.6); GAMMA GLOBULINS SO 0.7 g/dL (0.8-1.7)
[2024-04-17 00:07] LABS: COMPLEMENT TOTAL (CH50) 60 U/mL (31-60)
== END ==
LOC: M SFHCRHEU 11:11
PROVIDERS: ATTEND Internal Medicine
DX: M32.9 Systemic lupus erythematosus, unspecified (principal); Z11.59 Encounter for screening for other viral diseases; Z79.899 Other long term (current) drug therapy

== ENCOUNTER → 2024-04-12 | Outpatient (REF) | payer BC | LOC: M SFHCRHEU 11:52 | PROVIDERS: ATTEND Internal Medicine | DX: M32.9 Systemic lupus erythematosus, unspecified (principal) ==

== ENCOUNTER → 2024-04-15 | Outpatient (REF) | payer BC ==
[2024-04-15 12:06] LABS: BASO # 0.1 10^3/uL (0.0-0.2); EOS # 0.3 10^3/uL (0.0-0.5); EOS % 3.9 % (0.0-3.0); HEMATOCRIT 41.5 % (36.0-47.0); HEMOGLOBIN 13.6 g/dl (12.0-15.5); LYMPH # 2.6 10^3/uL (1.5-5.0); LYMPH % 31.4 % (24.0-44.0); MEAN CORPUSCULAR HEMOGLOBIN 31.6 pg (27.0-33.0); MEAN CORPUSCULAR HGB CONC 32.8 g/dl (32.0-36.5); MEAN CORPUSCULAR VOLUME 96.5 fl (80.0-96.0); MONO # 0.5 10^3/uL (0.0-0.8); MONO % 5.9 % (2.0-8.0); NEUTROPHILS # 4.7 10^3/uL (1.5-8.5); NEUTROPHILS % 57.4 % (36.0-66.0); PLATELET COUNT, AUTOMATED 183 10^3/uL (150-450); WHITE BLOOD COUNT 8.2 10^3/uL (4.0-10.0)
[2024-04-15 12:18] LABS: ERYTHROCYTE SEDIMENTATION RATE 27 mm/hr (0-30)
== END ==
LOC: M SFHCRHEU 08:57
PROVIDERS: ATTEND Internal Medicine
DX: M32.9 Systemic lupus erythematosus, unspecified (principal); Z79.899 Other long term (current) drug therapy

== ENCOUNTER → 2024-06-07 | Outpatient (CLI) | payer BC | LOC: M WHC 13:19 | PROVIDERS: ATTEND Internal Medicine | DX: M85.89 Other specified disorders of bone density and structure, multiple sites (principal); Z79.52 Long term (current) use of systemic steroids ==

== ENCOUNTER → 2024-06-25 | Outpatient (CLI) | payer BC | LOC: M WHC 07:54 | PROVIDERS: ATTEND Internal Medicine | DX: Z79.52 Long term (current) use of systemic steroids (principal) ==

== ENCOUNTER → 2024-06-28 | Outpatient (REF) | payer BC | LOC: M LABDRAWC 13:19 | PROVIDERS: ATTEND Internal Medicine | DX: M32.9 Systemic lupus erythematosus, unspecified (principal) ==

== ENCOUNTER → 2024-07-16 | Outpatient (REF) | payer BC ==
[2024-07-18 06:08] LABS: T P ELECTROPHORESIS SO 7.3 g/dL (6.1-8.1)
[2024-07-19 14:38] LABS: FREE KAPPA LIGHT CHAINS SERUM 19.2 mg/L (3.3-19.4); FREE LAMBDA LIGHT CHAINS SERUM 17.5 mg/L (5.7-26.3)
[2024-07-20 07:48] LABS: ALBUMIN SPEP 4.6 g/dL (3.8-4.8); ALPHA-1-GLOBULINS SO 0.3 g/dL (0.2-0.3); ALPHA-2-GLOBULINS SO 0.7 g/dL (0.5-0.9); BETA 2 GLOBULIN 0.4 g/dL (0.2-0.5); BETA-GLOBULIN SO 0.5 g/dL (0.4-0.6); GAMMA GLOBULINS SO 0.7 g/dL (0.8-1.7)
== END ==
LOC: M SFHCRHEU 11:15
PROVIDERS: ATTEND Internal Medicine
DX: D80.1 Nonfamilial hypogammaglobulinemia (principal); M32.9 Systemic lupus erythematosus, unspecified

== ENCOUNTER → 2024-12-09 | Outpatient (REF) | payer BC ==
[~2024-12-09] MED LIST changes: +LAMO-18 PO; -LAMO25TA4 PO; +LISI40TA10 PO; -LISI40TA4 PO; +PRED-1142 PO; -PRED1TABL PO
[2024-12-09 17:57] LABS: BASO # 0.0 10^3/uL (0.0-0.2); BASO % 0.6 % (0.0-1.0); EOS # 0.1 10^3/uL (0.0-0.5); EOS % 1.8 % (0.0-3.0); LYMPH # 2.3 10^3/uL (1.5-5.0); LYMPH % 36.1 % (24.0-44.0); MONO # 0.4 10^3/uL (0.0-0.8); MONO % 6.2 % (2.0-8.0); NEUTROPHILS # 3.5 10^3/uL (1.5-8.5); NEUTROPHILS % 55.1 % (36.0-66.0); PLATELET COUNT, AUTOMATED 115 10^3/uL (150-450)
[2024-12-09 18:06] LABS: ERYTHROCYTE SEDIMENTATION RATE 22 mm/hr (0-30)
[2024-12-09 18:37] LABS: ALT/SGPT 29 U/L (7.0-40); AST/SGOT 27 U/L (<34); CALCIUM LEVEL 9.1 MG/DL (8.5-10.1); CARBON DIOXIDE LEVEL 30 MMOL/L (20-31); CHLORIDE LEVEL 107 MMOL/L (98-107); CREATININE FOR GFR 0.84 MG/DL (0.55-1.30); GLOMERULAR FILTRATION RATE 81.5 (>51); POTASSIUM SERUM 3.5 MMOL/L (3.5-5.1); SODIUM LEVEL 145 MMOL/L (136-145)
[2024-12-09 18:38] LABS: C REACTIVE PROTEIN QUANTITATIV < 0.50 MG/DL (<1.0)
[2024-12-09 18:39] LABS: TOTAL 25(OH) VITAMIN D 45.4 NG/ML (20.0-100.0)
== END ==
LOC: M SFHCRHEU 13:56
PROVIDERS: ATTEND Internal Medicine
DX: M32.9 Systemic lupus erythematosus, unspecified (principal); Z79.899 Other long term (current) drug therapy